=== PATIENT | female | born 1985 ===

== ENCOUNTER 2022-02-05 15:48 | Outpatient (REF) | payer MEDICAID, SELFPAY ==
--- NOTE | ~2022-02-05 | US_ITS ---
EXAMINATION: US PELVIS CLINICAL INFORMATION: Frequent and excessive menses, last menstrual period 12/25/2021. COMPARISON: 04/20/2016 TECHNIQUE: Ultrasound of the pelvis is performed using both transabdominal and transvaginal transducers along with Doppler. Transvaginal imaging is performed due to inadequate visualization transabdominally. FINDINGS: The uterus is heterogeneous and measures 7.6 x 4.3 x 5.1 cm. No discrete fibroids. Small amount of free fluid in the pelvis. Endometrial thickness is 0.8 cm. Bilateral ovaries were seen only on transvaginal ultrasound images, limiting evaluation. Left ovary is unremarkable and measures 2.6 x 1.7 x 1.9 cm, volume 4.4 mL. Right ovary measures 5.4 x 3.5 x 3.3 cm, volume 32.7 mL. Right ovarian complex cyst with septations measures 3.5 x 3.1 x 3.3 cm. US/US pelvic and transvaginal IMPRESSION: 1. Complex 3.5 cm right ovarian cysts with multiple septations. Small amount of free fluid in the pelvis. Recommend follow-up ultrasound in 6-8 weeks. 2. Endometrial thickness 0.8 cm. Endometrium appears heterogeneous.
== END 2022-02-05 15:49 | disposition home or self-care (01) ==
LOC: HO.US 15:48
PROVIDERS: Visit Provider Advanced Practice Midwife
DX: N92.0 Excessive and frequent menstruation with regular cycle (principal)
CPT/HCPCS: 76830; 76856

== ENCOUNTER 2022-03-29 11:21 | Outpatient (REF) | payer MEDICAID, SELFPAY ==
[2022-03-29 15:00] LABS: CT PCR NOT DETECTED (Not Detect.); NG PCR DETECTED (Not Detect.)
[2022-03-30 09:56] LABS: BV Int Neg Control Negative (Negative); BV Int Pos Control Positive (Positive)
== END 2022-03-29 11:22 | disposition home or self-care (01) ==
LOC: HO.LNP 11:21
PROVIDERS: Visit Provider Obstetrics & Gynecology
DX: B37.31 Acute candidiasis of vulva and vagina (principal); B97.7 Papillomavirus as the cause of diseases classified elsewhere
CPT/HCPCS: 0353U; 81025; 87480; 87510; 87660; 99212

== ENCOUNTER → 2022-03-30 12:46 | Outpatient (BNVA) | payer MEDICAID, SELFPAY | PROVIDERS: Visit Provider Advanced Practice Midwife | DX: A54.9 Gonococcal infection, unspecified (principal) | CPT/HCPCS: 96372; 99211; J0696 ==

== ENCOUNTER 2022-04-06 14:48 | Outpatient (REF) | payer MEDICAID, SELFPAY ==
--- NOTE | ~2022-04-06 | US_ITS ---
EXAMINATION: US PELVIS CLINICAL INFORMATION: Menorrhagia, follow-up ovarian cyst. LMP 03/12/2022 COMPARISON: 02/05/2022 TECHNIQUE: Ultrasound of the pelvis is performed using both transabdominal and transvaginal transducers along with Doppler. Transvaginal imaging is performed due to inadequate visualization transabdominally. FINDINGS: Uterus: The uterus is anteverted and measures 8.0 x 4.6 x 6.0 cm. The double wall endometrial thickness is 0.9 mm. The uterus is smooth in contour and has normal myometrial echogenicity. No visible fibroid. Adnexa: Right ovary is unremarkable. There is normal color flow to the right adnexa. There is no ovarian torsion. There is no pelvic ascites or fluid collection. Right ovary measures 2.9 x 2.2 x 2.0 cm. Left ovary is not visualized on today's study. US/US pelvic and transvaginal IMPRESSION: 1. Previously seen right ovarian cyst is not visualized on today's study. 2. Normal sonographic appearance of the uterus and right ovary.
== END 2022-04-06 14:49 | disposition home or self-care (01) ==
LOC: HO.US 14:48
PROVIDERS: Visit Provider Advanced Practice Midwife
DX: N83.201 Unspecified ovarian cyst, right side (principal)
CPT/HCPCS: 76830; 76856

== ENCOUNTER 2022-04-26 15:16 | Outpatient (REF) | payer MEDICAID, SELFPAY ==
[2022-04-27 08:41] LABS: HBsAGNum1 0.24 S/CO (0.00-0.99); HIV AB/AG Nonreactive (Nonreactive); HIV Num 1 0.07 S/CO (0.00-0.99); Hepatitis B Surface Antigen Negative (Negative); ~HepC Num1 0.07 S/CO (0.00-0.79); ~Hepatitis C Antibody Nonreactive (Nonreactive)
[2022-04-27 08:56] LABS: Syphilis Screen Nonreactive (Nonreactive)
[2022-04-27 10:59] LABS: CT PCR NOT DETECTED (Not Detect.); NG PCR NOT DETECTED (Not Detect.)
== END 2022-04-26 15:17 | disposition home or self-care (01) ==
LOC: HO.LNP 15:16
PROVIDERS: Visit Provider Obstetrics & Gynecology
DX: Z11.4 Encounter for screening for human immunodeficiency virus [HIV] (principal); A54.9 Gonococcal infection, unspecified
CPT/HCPCS: 0353U; 86780; 86803; 87340; 87389; 99212

== ENCOUNTER 2022-05-01 08:11 | Outpatient (REF) | payer MEDICAID, SELFPAY | END 2022-05-01 08:12 | disposition home or self-care (01) | LOC: HO.LNP 08:11 | PROVIDERS: Visit Provider Obstetrics & Gynecology | DX: A63.0 Anogenital (venereal) warts (principal); B97.7 Papillomavirus as the cause of diseases classified elsewhere | CPT/HCPCS: 57454; 88305 ==

== ENCOUNTER → 2022-05-22 07:53 | Outpatient (BNVA) | payer MEDICAID, SELFPAY | PROVIDERS: Visit Provider Obstetrics & Gynecology | DX: Z71.2 Person consulting for explanation of examination or test findings (principal) | CPT/HCPCS: 99212 ==

== ENCOUNTER 2022-07-23 07:59 | Outpatient (REF) | payer MEDICAID, SELFPAY ==
[2022-07-23 09:26] LABS: Hematocrit 35.8 % (37.0-47.0); Hemoglobin 11.8 g/dl (12.0-16.0); Mean Corpuscular Hemoglobin 30.3 pg (27.0-33.0); Mean Platelet Volume 9.9 fL (9.4-12.3); Platelet Count 230 X10*3/uL (160-400); Red Blood Count 3.89 X10*6/uL (4.20-5.50); Red Cell Distribution Width 15.2 % (11.0-16.0)
[2022-07-23 10:18] LABS: HCG Quantitative < 2 mIU/mL; TSH reflex Free T4 0.84 uIU/mL (0.32-4.0)
[2022-07-23 15:18] LABS: CT PCR NOT DETECTED (Not Detect.); NG PCR NOT DETECTED (Not Detect.)
[2022-07-24 10:43] LABS: BV Int Neg Control Negative (Negative); BV Int Pos Control Positive (Positive)
[2022-07-24 11:39] LABS: Prolactin 3.7 ng/mL
== END 2022-07-23 08:00 | disposition home or self-care (01) ==
LOC: HO.LAB 07:59
PROVIDERS: Visit Provider Obstetrics & Gynecology
DX: N93.9 Abnormal uterine and vaginal bleeding, unspecified (principal); A54.9 Gonococcal infection, unspecified
CPT/HCPCS: 0353U; 36415; 84146; 84443; 84702; 85027; 87480; 87510; 87660; 99212

== ENCOUNTER 2022-07-23 08:52 | Outpatient (REF) | payer MEDICAID, SELFPAY | END 2022-07-23 08:53 | disposition home or self-care (01) | LOC: HO.LNP 08:52 | PROVIDERS: Visit Provider Obstetrics & Gynecology | DX: Z13.89 Encounter for screening for other disorder (principal) ==

== ENCOUNTER 2022-09-04 11:18 | Outpatient (REF) | payer MEDICAID, SELFPAY | END 2022-09-04 11:19 | disposition home or self-care (01) | LOC: HO.LNP 11:18 | PROVIDERS: Visit Provider Obstetrics & Gynecology | DX: Z32.02 Encounter for pregnancy test, result negative (principal); N93.9 Abnormal uterine and vaginal bleeding, unspecified | CPT/HCPCS: 58100; 81025; 88305 ==

== ENCOUNTER 2022-11-19 12:18 | Outpatient (AMB) | payer MEDICAID, SELFPAY ==
[2022-11-19 12:27] VITALS: BP 112/64; BMI 28.6
--- NOTE | 2022-11-19 12:27 | A.OFFVIS_ITS ---
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 The following workup was done.: H&H= 11.8/25.8 TSH, hCG, GC and chlamydia were negative. Endometrial biopsy pathology showed no evidence of hyperplasia and/or malignancy. 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 Sexual orientation: Straight/Heterosexual Gender identity: Female Female Reproductive History Menstrual Age of Menarche: 11 control method: permanent sterilization Date of last pap smear: 05/01/16 (negative) Review of Systems Const All systems reviewed & are unremarkable except as noted in HPI and below Reports as per HPI and Reports no additional complaints GI Reports no additional complaints Reports no additional complaints Physical Exam Vital Signs: Last Vital Signs BP 112/64 11/19/22 12:27 BMI result Body Mass Index 28.6 Assessment & Plan Assessment & Plan (1) Abnormal uterine bleeding (AUB): Code(s): N93.9 - Abnormal uterine and vaginal bleeding, unspecified Plan: Discussed with the patient the results of the work up done and options of treatment including control pills , Mirena IUD, cyclic Provera, Lysteda or endometrial ablation. All pros, cons, risks and benefits if each option was discussed with the patient and the patient decided to go ahead with BCP so a more detailed discussion re: control pills including mechanism of action, benefits (regular menses, less dysmenorrhea, less risk of ovarian cancer, ...), risks ( DVT, PE, Strokes, [place], ? increased breast ca, others). Instructions were given to schedule a 3 months appointment for blood pressure check Medications: New desogestrel-ethinyl estradiol 0.15-0.03 mg (Apri) 1 tab PO DAILY 28 tabs 2RF 28 days Coding Level of Care Code Est Pt Level 3 (36681) Diagnoses Abnormal uterine bleeding (AUB) N93.9
== END 2022-11-19 12:42 | disposition home or self-care (01) ==
PROVIDERS: Visit Provider Obstetrics & Gynecology
DX: N93.9 Abnormal uterine and vaginal bleeding, unspecified (principal)
CPT/HCPCS: 99213

== ENCOUNTER → 2022-11-19 12:18 | Outpatient (BNVA) | payer MEDICAID, SELFPAY | PROVIDERS: Visit Provider Obstetrics & Gynecology | DX: N93.9 Abnormal uterine and vaginal bleeding, unspecified (principal) | CPT/HCPCS: 99212 ==

== ENCOUNTER 2022-12-27 15:58 | Outpatient (REF) | payer MEDICAID, SELFPAY ==
[2023-01-01 06:43] LABS: HPV mRNA E6/E7 rflx Not Detected (Not Detected)
== END 2022-12-27 15:59 | disposition home or self-care (01) ==
LOC: HO.LNP 15:58
PROVIDERS: Visit Provider Advanced Practice Midwife
DX: R87.810 Cervical high risk human papillomavirus (HPV) DNA test positive (principal)
CPT/HCPCS: 87624; 88142

== ENCOUNTER 2023-01-29 10:15 | Outpatient (REF) | payer MEDICAID, SELFPAY ==
[2023-01-29 11:19] LABS: MANUAL DIFF FLAG NO
[2023-01-29 11:25] LABS: Basophils Percent Auto 0.4 % (0-2); Eosinophils Absolute Auto 0.2 X10*3/uL (0.0-0.4); Eosinophils Percent Auto 2.9 % (0-4); Hematocrit 38.4 % (37.0-47.0); Hemoglobin 12.6 g/dl (12.0-16.0); Imm Gran Abs Auto 0.02 X10*3/uL (0.00-0.03); Imm Gran Pct Auto 0.3 % (0.0-0.4); Lymphocytes Absolute Auto 2.2 X10*3/uL (1.2-4.9); Lymphocytes Percent Auto 29.1 % (20-40); Mean Corpuscular HGB Conc 32.8 g/dl (31.0-35.0); Mean Corpuscular Hemoglobin 31.1 pg (27.0-33.0); Mean Corpuscular Volume 94.8 fL (80.0-98.0); Mean Platelet Volume 10.8 fL (9.4-12.3); Monocytes Absolute Auto 0.8 X10*3/uL (0.1-1.2); Monocytes Percent Auto 9.9 % (2-11); Neutrophils Absolute Auto 4.3 x10*3/uL (2.0-8.3); Neutrophils Percent Auto 57.4 % (45-73); Platelet Count 272 X10*3/uL (160-400); Red Blood Count 4.05 X10*6/uL (4.20-5.50); White Blood Count 7.6 X10*3/uL (4.8-10.8)
[2023-01-29 12:15] LABS: Cholesterol 132 mg/dL (<200); HDL Cholesterol 62 mg/dL (>40); LDL Cholesterol Calculated 57 mg/dL (<100); Triglycerides 67 mg/dL (<150)
[2023-01-29 12:16] LABS: Reflex LDLD? No
[2023-01-29 12:19] LABS: Anion Gap 8 (12-20); Blood Urea Nitrogen 11 mg/dL (9-16); Calcium 9.1 mg/dL (8.4-10.2); Carbon Dioxide 29 mmol/L (22-29); Chloride 107 mmol/L (96-108); Estimated Glomerular Filt Rate > 60; Glucose Random 82 mg/dL (60-115); Potassium 3.8 mmol/L (3.3-5.1); Sodium 140 mmol/L (135-145)
[2023-01-29 12:23] LABS: HBS Num1 5.58 mIU/mL (0-7.99); HBc Num1 0.07 S/CO (0.00-0.79); HBsAGNum1 0.32 S/CO (0.00-0.99); Hepatitis A Antibody IgM 0.38 Index (0-0.79); Hepatitis B Core Antibody Nonreactive (Nonreactive); Hepatitis B Surface Antigen Negative (Negative); ~HepC Num1 0.11 S/CO (0.00-0.79); ~Hepatitis A Antibody IgM Nonreactive (Nonreactive); ~Hepatitis B Surface Antibody NONREACTIVE (Nonreactive); ~Hepatitis C Antibody Nonreactive (Nonreactive)
[2023-01-29 12:24] LABS: Ferritin 6 ng/mL (10-122); Vitamin D 25-OH Total 14.2 ng/mL (>30)
[2023-01-30 17:38] LABS: Mumps Virus IgG Antibody <9.00 AU/mL; Rubella IgG Antibody 1.09 Index; Rubeola IgG (Measles) <13.50 AU/mL
[2023-01-31 22:59] LABS: TS Negative Control Passed; TS Panel A 1; TS Panel B 1; TS Positive Control Passed; TSpotTB Negative (Negative)
== END 2023-01-29 10:16 | disposition home or self-care (01) ==
LOC: HO.HHCL 10:15
PROVIDERS: Visit Provider Internal Medicine
DX: Z00.00 Encounter for general adult medical examination without abnormal findings (principal); Z11.1 Encounter for screening for respiratory tuberculosis; D50.0 Iron deficiency anemia secondary to blood loss (chronic); G43.009 Migraine without aura, not intractable, without status migrainosus
CPT/HCPCS: 36415; 80048; 80061; 82306; 82728; 85025; 86481; 86704; 86706; 86709; 86735; 86762; 86765; 86803; 87340

== ENCOUNTER 2023-05-27 07:50 | Outpatient (AMB) | payer MEDICAID, SELFPAY ==
[2023-05-27 07:57] VITALS: BP 108/68; BMI 28.2
--- NOTE | 2023-05-27 07:57 | A.OFFVIS_ITS ---
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 Sexual orientation: Straight/Heterosexual Gender identity: Female Female Reproductive History Menstrual Age of Menarche: 11 Duration of menses: 6-7 days Date of last menstrual period: 05/20/23 control method: permanent sterilization Total pregnancies: 3 Full term: 2 Number of Living Children: 2 Ab spontaneous: 1 Date of last pap smear: 12/28/22 Physical Exam Vital Signs: Last Vital Signs BP 108/68 05/27/23 07:57 BMI result Body Mass Index 28.2 Office Procedures Colposcopy Before the procedure was started discussed with the patient the procedure, alternatives & all the risks associated with the procedure (bleeding, infection, injury to vagina, bladder, vessels, possible need for transfusion with all its risks) then patient signed the consent Pap smear = Pap negative/HPV E6/E7 positive Urine test done in the office was negative Speculum inserted, acetic acid used Colposcopy done Transformation zone seen, acetowhite lesions identified at 9+11+1+3 o?clock, cervical biopsies taken from 9+11+1+ o?clock, ECC done afterwards. Vaginoscopy of the upper vagina showed no evidence of any aceto-white lesions Monsel solution used for hemostasis. The patient tolerated well . At the end the patient was instructed to call if temp>100.4, abdominal pain, n/v, bleeding; The patient was given the following instructions: nothing per vag darrel, no intercourse or bath tub use. All questions answered the patient verbalized understanding. Instructed the patient to make an appointment in 2 weeks for follow-up This note was generated with a voice recognition program. Some errors may have been overlooked during the review of this note. Sometimes these errors may affect the content or meaning of a given sentence. [id number] of cervix including upper vagina with biopsy and ECC Procedure code (CPT) selection complete Assessment & Plan Assessment & Plan (1) HPV in female: Comment: 2020 positive HPV E6/E7, with negative Pap 2021 positive HPV E6/E7, negative Pap, colpo/biopsy/ECC negative 12/31 positive HPV E6/E7, negative Pap Code(s): B97.7 - Papillomavirus as the cause of diseases classified elsewhere Plan: Discussed with the patient the result of her HPV E6/E7 positive, its significance, risk of progression, persistence, and regression. the false positive/negative rate of a Pap smear as a screening test in detecting cervical cancer and the indication for a diagnostic test -colposcopy, biopsy, endocervical curettage. Colposcopy/biopsy/ECC done, see procedure note. The patient verbalized understanding and agreed with the plan, all questions answered. Orders: Orders AMB Colposcopy Today B97.7 - Papillomavirus as the cause of diseases classified elsewhere Coding Level of Care Code Procedure Only Diagnoses HPV in female B97.7 CPT Codes Colposcopy - CPT: 34700-Umzmojymf of cervix including upper vagina with biopsy and ECC ([id number])
== END 2023-05-27 08:37 | disposition home or self-care (01) ==
PROVIDERS: PCP Internal Medicine; Visit Provider Obstetrics & Gynecology
DX: R87.810 Cervical high risk human papillomavirus (HPV) DNA test positive (principal); Z32.02 Encounter for pregnancy test, result negative
CPT/HCPCS: 57454

== ENCOUNTER 2023-05-27 07:50 | Outpatient (REF) | payer MEDICAID, SELFPAY | END 2023-05-27 07:51 | disposition home or self-care (01) | LOC: HO.LNP 07:50 | PROVIDERS: Visit Provider Obstetrics & Gynecology | DX: Z01.419 Encounter for gynecological examination (general) (routine) without abnormal findings (principal); N93.9 Abnormal uterine and vaginal bleeding, unspecified; B97.7 Papillomavirus as the cause of diseases classified elsewhere | CPT/HCPCS: 57454; 81025; 88305; 88342; 88360 ==

== ENCOUNTER 2023-07-04 07:29 | Outpatient (AMB) | payer MEDICAID, SELFPAY ==
[2023-07-04 07:32] VITALS: BP 110/72; BMI 28.1
--- NOTE | 2023-07-04 07:32 | MHC.OFFVIS ---
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 The patient is doing well with no complaints. The pathology showed the following: A. Endocervix, curettage: Mildly inflamed endocervical mucosa; otherwise within normal limits. B. Cervix, 1 o'clock, biopsy: Inflamed cervical transformation zone mucosa with reactive changes. C. Cervix, 3 o'clock, biopsy: Inflamed cervical transformation zone mucosa with reactive changes. D. Cervix, 9 o'clock, biopsy: Low grade squamous intraepithelial lesion (ANA 1); endocervical epithelium within normal limits. E. Cervix, 11 o'clock, biopsy: Scant superficial fragments of endocervical and squamous epithelium within normal limits Co testing 12/30 was negative/HPV E6/E7 positive Co testing done in 12/31 was negative [facility] Medical History (Updated 07/04/23 @ 07:46 by Deng De Luna MD) HPV in female Surgical History Hx of tubal ligation Family History Maternal Grandmother Diabetes Breast cancer Mother HTN (hypertension) Social History Household Members: Children Housing: Apartment Alcohol intake: current Alcohol intake frequency: holidays/special occasions only Patient Tobacco Use Status: Former Tobacco user Current occupational status: employed 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 Sexual orientation: Straight/Heterosexual Gender identity: Female Female Reproductive History Menstrual Age of Menarche: 11 Date of last menstrual period: 07/01/23 Review of Systems Const All systems reviewed & are unremarkable except as noted in HPI and below Reports as per HPI and Reports no additional complaints GI Reports no additional complaints Reports no additional complaints Physical Exam Vital Signs: Last Vital Signs BP 110/72 07/04/23 07:32 BMI result Body Mass Index 28.1 Assessment & Plan Assessment & Plan (1) Dysplasia of cervix, low grade (ANA 1): Code(s): N87.0 - Mild cervical dysplasia Category: Medical Plan: Discussed with the patient the pathology results of the colposcopy biopsies & endocervical curettage ( mild dysplasia-ANA 1). Discussed with the patient the sensitivity specificity, positive and negative predictive value in detecting cervical cancer in addition discussed the regression, persistence and progression rates. Recommended co-testing in 12 months, if cytology and or HPV are abnormal will proceed was colposcopy biopsy and endocervical curettage, if lesions gets worse or stays persistent for 2 years will proceed with loop electric excision procedure. Instructions given to the patient to schedule a co test appointment in 1 year. All questions answered the patient verbalized understanding. Coding Level of Care Code Est Pt Level 3 (47404) Diagnoses Dysplasia of cervix, low grade (ANA 1) N87.0
== END 2023-07-04 07:45 | disposition home or self-care (01) ==
LOC: HO.HWS 07:29
PROVIDERS: PCP Advanced Practice Midwife; Referring Provider Advanced Practice Midwife; Visit Provider Obstetrics & Gynecology
DX: N87.0 Mild cervical dysplasia (principal)
CPT/HCPCS: 99213

== ENCOUNTER → 2023-07-04 07:29 | Outpatient (BNVA) | payer MEDICAID, SELFPAY | PROVIDERS: PCP Advanced Practice Midwife; Visit Provider Obstetrics & Gynecology | DX: N87.0 Mild cervical dysplasia (principal) | CPT/HCPCS: 99212 ==

== ENCOUNTER → 2023-07-30 11:26 | Outpatient (BNVA) | payer MEDICAID, SELFPAY | PROVIDERS: PCP Advanced Practice Midwife; Visit Provider Obstetrics & Gynecology ==

== ENCOUNTER 2023-10-14 07:23 | Outpatient (AMB) | payer MEDICAID, SELFPAY ==
--- NOTE | 2023-10-14 07:24 | A.OFFVIS_ITS ---
Vital Signs 10/14/23 07:27 Height 5 ft 6 in Weight 174 lb 2.643 oz BMI 28.1 BP 120/74 Intake Visit Reasons: control follow up Rug Renovator Required: No Information Interpreted: non-clinical & clinical Accompanied by: Self / Same As Patient Allergies No Known Allergies [No Known Allergies*] Allergy (Verified 07/30/23 11:27) Is last menstrual period known: No (pills) HPI Comments Details: Presenting for control complaining of migraine headaches. 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 Sexual orientation: Straight/Heterosexual Gender identity: Female Female Reproductive History Menstrual Age of Menarche: 11 Review of Systems Const All systems reviewed & are unremarkable except as noted in HPI and below Reports as per HPI and Reports no additional complaints GI Reports no additional complaints Reports no additional complaints Physical Exam Vital Signs: Last Vital Signs BP 120/74 10/14/23 07:27 BMI result Body Mass Index 28.1 Assessment & Plan Assessment & Plan (1) Abnormal uterine bleeding (AUB): Code(s): N93.9 - Abnormal uterine and vaginal bleeding, unspecified Category: Medical Plan: Recommended discontinuation of control pills zelda. Instructions given the patient to schedule EMB within 2 weeks to rule out endometrial pathology Discussed with the patient the results of the work up done and options of treatment including but not limited to cyclic Progesterone, Mirena IUD, endometrial ablation and hysterectomy. All pros, cons, risks and benefits of each option were discussed with the patient and the patient decided to go ahead with cyclic Provera, so a more detailed discussion re: Progesterone treatment including mechanism of action, benefits (regular menses, endometrial protection form unopposed estrogen and reduction in the risk of endometrial hyperplasia and/or cancer ...), risks (Thrombosis, mood changes, weight gain, breast soreness, ? increased breast ca, others). Instructions were given to use a back- up method for contraception since this is not a method control, take the medication 1 tablet daily starting day 15-24 and to schedule a 3 months follow- up appointment; patient verbalized understanding and agreed with the plan. Medications: New medroxyprogesterone (Provera) start Provera 1 tablet daily from day 15-24 cyclically every months, day 1 being 1st day of menses 10 mg PO DAILY 10 days 30 tabs 0RF Discontinued L norgest/e.estradiol-e.estrad 0.15 mg-30 mcg ()/10 mcg (7) () Discontinued Reason: Doctor's Order 1 tab PO DAILY 84 days 84 ea 0RF Coding Level of Care Code Est Pt Level 3 (31441) Diagnoses Abnormal uterine bleeding (AUB) N93.9
[2023-10-14 07:27] VITALS: BP 120/74; BMI 28.1
== END 2023-10-14 08:16 | disposition home or self-care (01) ==
PROVIDERS: PCP Advanced Practice Midwife; Referring Provider Advanced Practice Midwife; Visit Provider Obstetrics & Gynecology
DX: N93.9 Abnormal uterine and vaginal bleeding, unspecified (principal)
CPT/HCPCS: 99213

== ENCOUNTER → 2023-10-14 07:23 | Outpatient (BNVA) | payer MEDICAID, SELFPAY | PROVIDERS: PCP Advanced Practice Midwife; Visit Provider Obstetrics & Gynecology | DX: N93.9 Abnormal uterine and vaginal bleeding, unspecified (principal); G43.909 Migraine, unspecified, not intractable, without status migrainosus; Z30.41 Encounter for surveillance of contraceptive pills | CPT/HCPCS: 99212 ==

== ENCOUNTER 2023-10-24 08:39 | Outpatient (AMB) | payer MEDICAID, SELFPAY ==
[2023-10-24 09:03] VITALS: BMI 28.1
--- NOTE | 2023-10-24 09:03 | A.OFFVIS_ITS ---
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 Required: No Information Interpreted: non-clinical & clinical Government Service Executive: Government Service Executive Present (Josette ELLINGTON) Accompanied by: Self / Same As Patient Allergies No Known Allergies [No Known Allergies*] Allergy (Verified 10/24/23 09:03) HPI Comments Details: Presenting for EMB [facility] Medical History Migraine HPV in female Surgical History Hx of tubal ligation Family History Maternal Grandmother Diabetes Breast cancer Mother HTN (hypertension) Social History Household Members: Children Housing: Apartment Alcohol intake: current Alcohol intake frequency: holidays/special occasions only Patient Tobacco Use Status: Former Tobacco user Current occupational status: employed 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 Sexual orientation: Straight/Heterosexual Gender identity: Female Female Reproductive History Menstrual Age of Menarche: 11 Review of Systems Const All systems reviewed & are unremarkable except as noted in HPI and below Reports as per HPI and Reports no additional complaints GI Reports no additional complaints Reports no additional complaints Physical Exam Vital Signs: BMI result Body Mass Index 28.1 Office Procedures Endometrial Biopsy Details: The patient was counseled regarding the indication and benefits of endometrial sampling to rule out endometrial pathology including not limited to endometrial hyperplasia or endometrial cancer and others; The alternatives (Either do nothing vs. hysteroscopy D&C) & the risks were discussed with the patient including but not limited: pain, uterine perforation, bleeding, infection, possible injury to bladder, bowel, ureter, possible need for blood transfusion with all its possible risks. The patient verbalized understanding all questions answered and signed consent. Urine test done in the office was negative The patient was placed into the dorsal lithotomy position; a speculum was inserted in the vagina. Using aseptic technique for the procedure, the cervix was cleansed with Betadine. The anterior lip of the cervix was grasped with a single tooth tenaculum. The uterus was sounded to 7 cm with a 4 mm Pipelle was used. Tissues samples were obtained and placed in formalin, in a patient labeled container and sent to the pathology department. At the end of the procedure, there was minimal bleeding noted The patient tolerated the procedure well and was discharged in good condition with the following instructions: Nothing in the vagina until the bleeding stops. No sex until the bleeding stops, to call if any of the following occurs: fever (>100.4), flu-like symptoms, abdominal pain, heavy bleeding, four smelling vaginal discharge. The patient was instructed to schedule a Follow up appointment in 2 weeks to discuss pathology results of the biopsy and treatment options. This note was generated with a voice recognition program. Some errors may have been overlooked during the review of this note. Sometimes these errors may affect the content or meaning of a given sentence. [id number]-[id number] Biopsy Assessment & Plan Assessment & Plan (1) Abnormal uterine bleeding (AUB): Code(s): N93.9 - Abnormal uterine and vaginal bleeding, unspecified Category: Medical Plan: EMB done, see procedure note Orders: Orders AMB HCG Urine Test Today Z32.02 - Encounter for test, result negative Surgical Today N93.9 - Abnormal uterine and vaginal bleeding, unspecified AMB Endometrial Biopsy Today N93.9 - Abnormal uterine and vaginal bleeding, unspecified Medications: Refilled medroxyprogesterone (Provera) start Provera 1 tablet daily from day 15-24 cyclically every months, day 1 being 1st day of menses 10 mg PO DAILY 10 days 30 tabs 0RF Coding Level of Care Code Procedure Only Diagnoses Abnormal uterine bleeding (AUB) N93.9 CPT Codes Endometrial Biopsy - CPT: 29953-Ofzfwoyeygd Biopsy ([id number])
== END 2023-10-24 09:48 | disposition home or self-care (01) ==
PROVIDERS: PCP Advanced Practice Midwife; Visit Provider Obstetrics & Gynecology
DX: Z32.02 Encounter for pregnancy test, result negative (principal); N93.9 Abnormal uterine and vaginal bleeding, unspecified
CPT/HCPCS: 58100

== ENCOUNTER 2023-10-24 08:39 | Outpatient (REF) | payer MEDICAID, SELFPAY | END 2023-10-24 08:40 | disposition home or self-care (01) | LOC: HO.LNP 08:39 | PROVIDERS: PCP Advanced Practice Midwife; Visit Provider Obstetrics & Gynecology | DX: N93.9 Abnormal uterine and vaginal bleeding, unspecified (principal) | CPT/HCPCS: 58100; 81025; 88305 ==

== ENCOUNTER 2023-12-18 07:44 | Outpatient (AMB) | payer MEDICAID, SELFPAY ==
[2023-12-18 07:59] VITALS: BMI 28.1
--- NOTE | 2023-12-18 07:59 | A.OFFVIS_ITS ---
Vital Signs 12/18/23 07:59 Height 5 ft 6 in Weight 174 lb 2.643 oz BMI 28.1 Intake Visit Reasons: Emb Results Allergies No Known Allergies [No Known Allergies*] Allergy (Verified 10/24/23 09:03) HPI Comments Details: The patient is presenting after endometrial biopsy. The patient has no complaints, no vaginal bleeding, no feverishness chills or abdominal pain. The endometrial biopsy pathology report showed the following: Endometrium, biopsy: Fragments of inactive endometrium with stromal breakdown; negative for atypia, hyperplasia or malignancy. The patient discontinued control pill and started on Provera 10 mg p.o. q.d. 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 Sexual orientation: Straight/Heterosexual Gender identity: Female Female Reproductive History Menstrual Age of Menarche: 11 Review of Systems Const All systems reviewed & are unremarkable except as noted in HPI and below Reports as per HPI and Reports no additional complaints GI Reports no additional complaints Reports no additional complaints Physical Exam Vital Signs: BMI result Body Mass Index 28.1 Assessment & Plan Assessment & Plan (1) Abnormal uterine bleeding (AUB): Code(s): N93.9 - Abnormal uterine and vaginal bleeding, unspecified Category: Medical Plan: Discussed with the patient the results the EMB pathology, its sensitivity, specificity, false-positive and false-negative rate. Instructions given the patient to call in case of recurrence abnormal uterine bleeding. All questions answered, the patient verbalized understanding Coding Level of Care Code Est Pt Level 3 (68597) Diagnoses Abnormal uterine bleeding (AUB) N93.9
== END 2023-12-18 08:10 | disposition home or self-care (01) ==
PROVIDERS: PCP Advanced Practice Midwife; Visit Provider Obstetrics & Gynecology
DX: N93.9 Abnormal uterine and vaginal bleeding, unspecified (principal)
CPT/HCPCS: 99213

== ENCOUNTER → 2023-12-18 07:44 | Outpatient (BNVA) | payer MEDICAID, SELFPAY | PROVIDERS: PCP Advanced Practice Midwife; Visit Provider Obstetrics & Gynecology | DX: N93.9 Abnormal uterine and vaginal bleeding, unspecified (principal); Z71.2 Person consulting for explanation of examination or test findings | CPT/HCPCS: 99212 ==

== ENCOUNTER 2023-12-26 18:32 | Outpatient (REF) | payer MEDICAID, SELFPAY ==
[2023-12-27 08:57] LABS: Bacterial Vaginosis PCR POSITIVE (Negative); Candida Group PCR NOT DETECTED (Not Detect); Candida glab krusei PCR NOT DETECTED (Not Detect); Trichomonas vaginalis PCR NOT DETECTED (Not Detect)
== END 2023-12-26 18:33 | disposition home or self-care (01) ==
LOC: HO.HHCLNP 18:32
PROVIDERS: Visit Provider Advanced Practice Midwife
DX: N89.8 Other specified noninflammatory disorders of vagina (principal)
CPT/HCPCS: 0352U

== ENCOUNTER 2024-01-30 07:27 | Outpatient (AMB) | payer MEDICAID, SELFPAY ==
[2024-01-30 07:33] VITALS: BP 116/70; BMI 28.1
--- NOTE | 2024-01-30 07:33 | A.OFFVIS_ITS ---
Vital Signs 01/30/24 07:33 Height 5 ft 6 in Weight 174 lb 2.643 oz BMI 28.1 BP 116/70 Intake Visit Reasons: Medication follow up Patient Service Rep Required: No Information Interpreted: non-clinical & clinical Accompanied by: Self / Same As Patient Allergies No Known Allergies [No Known Allergies*] Allergy (Verified 10/24/23 09:03) HPI Comments Details: Presenting for three-month follow-up after starting Provera cyclicly day 15-24 PFSH Medical History Migraine HPV in female Surgical History Hx of tubal ligation Family History Maternal Grandmother Diabetes Breast cancer Mother HTN (hypertension) Social History Household Members: Children Housing: Apartment Alcohol intake: current Alcohol intake frequency: holidays/special occasions only Patient Tobacco Use Status: Former Tobacco user Current occupational status: employed 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 Sexual orientation: Straight/Heterosexual Gender identity: Female Female Reproductive History Menstrual Age of Menarche: 11 Review of Systems Const All systems reviewed & are unremarkable except as noted in HPI and below Reports as per HPI and Reports no additional complaints GI Reports no additional complaints Reports no additional complaints Physical Exam Vital Signs: Last Vital Signs BP 116/70 01/30/24 07:33 BMI result Body Mass Index 28.1 Assessment & Plan Assessment & Plan (1) Abnormal uterine bleeding (AUB): Code(s): N93.9 - Abnormal uterine and vaginal bleeding, unspecified Category: Medical Plan: Provera refilled 10 mg p.o. q.d. day 15-24. Instructions given to patient to call in case of irregular menstrual cycles. All questions answered, the patient verbalized understanding Medications: Refilled medroxyprogesterone (Provera) start Provera 1 tablet daily from day 15-24 cyclically every months, day 1 being 1st day of menses 10 mg PO DAILY 10 days 30 tabs 3RF Coding Level of Care Code Est Pt Level 3 (63137) Diagnoses Abnormal uterine bleeding (AUB) N93.9
== END 2024-01-30 07:41 | disposition home or self-care (01) ==
LOC: HO.HWS 07:27
PROVIDERS: PCP Advanced Practice Midwife; Visit Provider Obstetrics & Gynecology
DX: N93.9 Abnormal uterine and vaginal bleeding, unspecified (principal)
CPT/HCPCS: 99213

== ENCOUNTER → 2024-01-30 07:27 | Outpatient (BNVA) | payer MEDICAID, SELFPAY | PROVIDERS: PCP Advanced Practice Midwife; Visit Provider Obstetrics & Gynecology | DX: N93.9 Abnormal uterine and vaginal bleeding, unspecified (principal) | CPT/HCPCS: 99212 ==

== ENCOUNTER 2024-05-19 17:21 | Outpatient (REF) | payer MEDICAID, SELFPAY ==
[2024-05-19 17:31] LABS: Appearance Urine Clear; Color Urine Yellow; Glucose Urine UA Negative (Negative); Leukocyte Esterase Urine Small (1+) (Negative); Nitrite Urine Negative (Negative); PH 8.5 (5.0-9.0); UMIC TRIGGER UACC YES; Urine Blood Trace (Negative); Urine Ketones Negative (Negative); Urine Protein Trace mg/dL (Neg-Trace)
[2024-05-19 17:43] LABS: Bacteria Urine None Seen (None Seen); Hyaline Casts Urine 0-2 /LPF (0-2); RBC Urine 0-2 /HPF (0-2); Squamous Epithelial Cell Urine 0-2 /HPF (0-2); UACC Culture Trigger YES; WBC Urine 0-5 /HPF (0-5)
--- OUTSIDE RECORDS SUMMARY | 2024-05-19 19:33 | XMS_ITS | Encounter Summary ---
Author Organization [facility] Address [address] [place] [address] [address] [place] [address] Care Team Providers Care Training Representative Name Role Phone Pearl Valentine MD Primary Care Provider + Encounter Details Date Type Department Care Team (Latest Contact Info) Description 07/15/2020 Abstract [facility] CONVERSIONS Dental, Provider, DDS Social History Tobacco Use Types Packs/Day Years Used Date Smoking Tobacco: Never Assessed Comments Unknown Sex and Gender Information Value Date Recorded Sex Assigned at Female 01/08/2022 10:15 AM EDT Legal Sex Female 10:15 AM EDT Gender Identity Female 01/08/2022 10:15 AM EDT Sexual Orientation Straight 01/08/2022 10 :15 AM EDT documented as of this encounter Plan of Treatment Upcoming Encounters Date Type Department Care Team (Late st Contact Info) Description 06/04/2024 2:30 PM EDT Office Visit [facility] OPTOMETRY [address] [place] [address] Ginny Kee, OD [address] [place] [address] documented as of this encounter Visit Diagnoses Not on filedocumented in this encounter Care Teams Training Representative Relationship Specialty Start Date End Date Pearl Valentine MD [address] [place] [address] PCP - General Family Medicine 03/27/18 documented as of this encounter
--- OUTSIDE RECORDS SUMMARY | 2024-05-19 19:33 | XMS_ITS | Encounter Summary ---
Author Organization [employer] Address [address] [facility] 7t [place] [address] Care Team Providers Care Chopping Machine Operator Name Role Phone Pearl Valentine MD Primary Care Provider + Reason for Visit * Reason Onset Date Comments No Show 05/19/2024 Encounter Details Date Type Department Care Team ([facility] st Contact Info) Description 05/19/2024 Telephone [facility]ICINE [address] [place], [place] [phone] Sofya Fierro, [facility] [address] [place], [place] [phone] No Show Social History Tobacco Use Types Packs/Day Years Used Date Smoking Tobacco: Some Days Cigarettes Smokeless Tobacco: Never Alcohol Use Standard Drinks/Week Comments Yes 0 (1 standard drink = 0.6 oz pur e alcohol) Housing Stability Answer Date Recorded What is your housing situation today? I have enrique baer 01/02/[address] you li ve. Do you have problems with any of the following? None of the above 01/02/2023 Food Insecurity Answer Date Recorded Within the past 12 months, y ou worried that your food would run out before you got money to buy more: Never True 01/02/2023 Within the past 12 months,th e food you bought just didn't last and you didn't have enough money to get more: Never True Transportation Answer Date Recorded In the past 12 months, has l ack of transportation kept you from medical appts, meetings, work or from getting things needed for daily living? No 01/02/2023 Utilities Answer Date Recorded In the past 12 months, has t he electric, gas, oil or water company threatened to shut off services in your home? No 01/02/2023 Depression Answer Date Recorded Patient Health Questionnaire-2 Score 0 01/29/2023 Comments No Sex and Gender Information Value Date Recorded Sex Assigned at Female 01/08/2022 10:15 AM EDT Legal Sex Female 10:15 AM EDT Gender Identity Female 01/08/2022 10:15 AM EDT Sexual Orientation Straight 01/08/2022 10 :15 AM EDT documented as of this encounter Miscellaneous Notes * Telephone Encounter - Michaela Alexis RN - 05/19/2024 2:18 PM EDT Pt seen in [facility] for same Sx earlier today. Pt to follow up PRN * Telephone Encounter - Ana Cristina Adam - 05/19/2024 2:10 PM EDT Patient no showed to sick on site on 05/19/2024. documented in this encounter Plan of Treatment Upcoming Encounters Date Type Department Care Team (Late st Contact Info) Description 06/04/2024 2:30 PM EDT Office Visit [facility] OPTOMETRY [address] [place] [address] Ginny Kee, OD [address] [place] [address] documented as of this encounter Visit Diagnoses Not on filedocumented in this encounter Care Teams Chopping Machine Operator Relationship Specialty Start Date End Date Pearl Valentine MD [address] [place] [address] PCP - General Family Medicine 03/27/18 documented as of this encounter
--- OUTSIDE RECORDS SUMMARY | 2024-05-19 19:33 | XMS_ITS | Encounter Summary ---
Author Organization [employer] [facility] Address [address] [place] [address] 7 [place] [address] Care Team Providers Care Optometrist Name Role Phone Pearl Valentine MD Primary Care Provider + Reason for Referral * Imaging (Routine) - Closed Specialty Diagnoses / Procedures Referred By Contac t Referred To Contact Diagnoses Ovarian cyst, right Procedures Us Pelvis complete Sofya Fierro CNM [address] [place] [address] Phone: tel: fax: [address] [phone] Phone: tel: fax: Referral ID Status Reason Start Date Expiration Date Visits Re quested Visits Authorized [id number] Closed 03/22/2022 09/18/2022 1 1 * Imaging (Routine) - Closed Specialty Diagnoses / Procedures Referred By Contac t Referred To Contact Diagnoses Ovarian cyst, right Procedures US Pelvis Transvaginal Sofya Fierro CNM [address] [place] [address] Phone: tel: fax: [address] [phone] Phone: tel: fax: Referral ID Status Reason Start Date Expiration Date Visits Re quested Visits Authorized [id number] Closed 03/22/2022 09/18/2022 1 1 Encounter Details Date Type Department Care Team (Late Contact Info) Description 03/22/2022 Orders Only [facility] MEDICINE [address] [place] [address] Sofya Fierro CNM [address] [place] [address] Ovarian cyst, right (Primary Dx) Social History Tobacco Use Types Packs/Day Years Used Date Smoking Tobacco: Never Smokeless Tobacco: Never Comments Unknown Sex and Gender Information Value Date Recorded Sex Assigned at Female 01/08/2022 10:15 AM EDT Legal Sex Female 10:15 AM EDT Gender Identity Female 01/08/2022 10:15 AM EDT Sexual Orientation Straight 01/08/2022 10 :15 AM EDT COVID-19 Exposure Response Date Recorded In the last 10 days, have yo u been in contact with someone who was confirmed or suspected to have Coronavirus/COVID-19? Yes 03/19/2022 8:46 AM EST documented as of this encounter Plan of Treatment Upcoming Encounters Date Type Department Care Team (Late Contact Info) Description 06/04/2024 2:30 PM EDT Office Visit [facility] OPTOMETRY [address] [place] [address] Targustavo, Ginny, OD [address] [place] [address] Scheduled Orders Name Type Priority Associated Diagnoses Orde r Schedule US Pelvis Transvaginal Imaging Routine Ovarian cyst, right Expected: 03/22/2022, Expires: 03/22/2023 Us Pelvis complete Imaging Routine Ovarian cyst, right Expected: 03/22/2022, Expires: 03/22/2023 documented as of this encounter Visit Diagnoses Diagnosis Ovarian cyst, right- Primary Other and unspecified ovarian cyst documented in this encounter Care Teams Optometrist Relationship Specialty Start Date End Date Pearl Valentine MD [address] [place] [id number] PCP - General Family Medicine 03/27/18 documented as of this encounter
--- OUTSIDE RECORDS SUMMARY | 2024-05-19 19:33 | XMS_ITS | Encounter Summary ---
Author Organization [employer] Address [address] [facility] 7t [place] [address] Care Team Providers Care Billboard Poster Helper Name Role Phone Pearl Valentine MD Primary Care Provider + Reason for Visit * Reason Onset Date Comments Nurse Triage 05/18/2024 Encounter Details Date Type Department Care Team ([facility] st Contact Info) Description 05/18/2024 Telephone [facility] MEDICINE [address] [place], [place] [phone] Pearl Valentine MD [address] [place], [place] [phone] Nurse Triage Social History Tobacco Use Types Packs/Day Years [...] t he electric, gas, oil or water [employer] threatened to shut off services in your [...] encounter Miscellaneous Notes * Telephone Encounter - Elena Love RN - 05/18/2024 4:14 PM EDT Noted, to f/up at appt. Tomorrow 05/19/24 * Telephone Encounter - Carlita Carl LPN - 05/18/2024 3:56 PM EDT Triage call returned with BLS # [id number] Juancarlos Patient reports onset of symptoms on Saturday with vaginal burning and irritation with slight itch.NO discharge on underwear at time of call. No pain with urination and no blood in urine. Patient reports that she has had infection before' and does not want it to get worse. Patient very upset thatshe is unable to get in to see her PCP when she calls with concerns. No appts available with PCP attime of call. Disposition reviewed and patient in agreement with plan. ASK/Rakel LOPEZ tomorrow at 115pm. Patient wants PCP to be aware of no availability and her frustration with seeing other providers. Team tasked to follow. Protocol Used: Vaginal Symptoms (Adult) Protocol-Based Disposition: See in Office or Video Visit within 3 Days Positive Triage Question: * Patient wants to be seen * All higher-acuity triage questions were negative Care Advice Discussed: * Reasons To Call Back - Vaginal discharge becomes yellow or green - Vaginal discharge becomes foul smelling or itchy - Fever or abdomen pain occur - You become worse * Telephone Encounter - Henok Dunaway - 05/18/2024 3:50 PM EDT Symptom: Vaginal Symptoms - Not Bleeding Outcome: Schedule an urgent appointment (within 1 hour) or talk to a nurse or provider soon Reason: Any pelvic pain The caller accepted this outcome. documented in this encounter Plan of Treatment Upcoming Encounters Date Type Department Care Team (Late st Contact Info) Description 06/04/2024 2:30 PM EDT Office Visit [facility] OPTOMETRY [address] [place] [address] Ginny Kee, OD [address] [place] [address] documented as of this encounter Visit Diagnoses Not on filedocumented in this encounter Care Teams Billboard Poster Helper Relationship Specialty Start Date End Date Pearl Valentine MD [address] [place] [phone] PCP - General Family Medicine 03/27/18 documented as of this encounter
--- OUTSIDE RECORDS SUMMARY | 2024-05-19 19:33 | XMS_ITS | Encounter Summary ---
Author Organization [employer] Address [address] [place] [address] [address] [place] [address] Care Team Providers Care Foundation Drill Operator Helper Name Role Phone Pearl Valentine MD Primary Care Provider + Encounter Details Date Type Department Care Team (Late st Contact Info) Description 02/12/2022 Orders Only [facility] [address] [place], [place] [phone] Sofya Fierro, JOHN [address] [place] [address] Cyst of right ovary Social History Tobacco Use Types Packs/Day Years [...] Description 06/04/2024 2:30 PM EDT Office Visit [facility] OPTOMETRY [address] [place], [place] [phone] Ginny Kee, OD [address] [place], [place] [phone] Scheduled Orders Name Type Priority Associated Diagnoses Orde r Schedule Us Pelvis complete Imaging Routine Cyst of right ovary Expected: 03/26/2022, Expires: 02/12/2023 documented as of this encounter Visit Diagnoses Diagnosis Cyst of right ovary Other and unspecified ovarian cyst documented in this encounter Care Teams Foundation Drill Operator Helper Relationship Specialty Start Date End Date Pearl Valentine MD [address] [place] [phone] PCP - General Family Medicine 03/27/18 documented as of this encounter
--- OUTSIDE RECORDS SUMMARY | 2024-05-19 19:33 | XMS_ITS | Clinical Summary ---
Author Organization [employer] Address [address] [facility] [address] [place] [address] Care Team Providers Care Network Technology Instructor Name Role Phone Pearl Valentine MD Primary Care Provider + Allergies No known active allergies Medications omeprazole (PriLOSEC) [address] capsule TAKE 1 CAPSULE BY MOUTH BEFORE BREAKFAST DO NOT CRUSH OR CHEW 90 capsule 1 07/04/19 24 Active Additional Information Patient not taking.Reported on 03/26/2024 Multiple Vitamin (multivitamin) tablet Take 1 tablet by mouth Once per day. 90 tablet 08/01/19 24 Active Additional Information Patient not taking.Reported on 03/26/2024 medroxyPROGESTE Fer (Provera) 10 MG tablet Take 10 mg by mouth Once per day. 1/d x 10d every month on the first day of her menstruation 11/20/19 24 Active Blood Pressure Monitoring (Blood Pressure Cuff) misc Use daily as prescribed 1 each 02/04/20 24 Active fluticasone (Flonase) 50 MCG/ACT nasal spray Administer 1 spray into each nostril 2 times daily for 7 days. Shake gently. Before first use, prime pump. After use, clean tip and replace cap. 48 mL 02/04/20 24 Active Acetaminophen 500 MG capsuleIndicati ons:Other headache syndrome Take one to two tablets as needed for fever or pain every 6 hours 120 capsule 02/04/20 24 Active Additional Information Patient not taking.Reported on 03/26/2024 hydrOXYzine HCl (Atarax) 25 MG tabletIndicatio ns:Primary insomnia TAKE 1 TABLET BY MOUTH AT BEDTIME 90 tablet 03/12/19 25 Active clotrimazole (Lotrimin) 1 % vaginal creamIndication s:Vulvovaginal Candidiasis Insert one applicator per vagina at bedtime for 7 nights 45 g 1 05/20/19 25 Active clotrimazole (Lotrimin) 1 % vaginal creamIndication s:Vulvovaginal Candidiasis Insert one applicator per vagina at bedtime for 7 nights 45 g 1 05/20/19 25 025 Discontin ued(Alter gary therapy) Active Problems Problem Noted Date Diagnosed Date Vagina, candidiasis 05/19/2024 Assessment & Plan (05/19/2024 9:21 AM EDT): -Wet prep with ARY significant for hyphae and budding yeast. -Candidiasis prevention discussed. Other headache syndrome 02/04/2024 Assessment & Plan (02/04/2024 1:13 PM EST): Unclear if related to bleeding versus URI. Take Acetaminophen or Tylenol x 1 week, re consult PRN. Check BP at home and call back if BP is above 140/85. Refer to Ophthalmology. Acute pain of right shoulder 08/01/2023 Assessment & Plan (08/01/2023 12:37 PM EDT): She has tendinosis Refer to PT Callus of heel 08/01/2023 Assessment & Plan (08/01/2023 12:38 PM EDT): Advised to use OTC salicylic acid solution Use callus cushion w/ shoes Will fu PRN ANA I (cervical intraepithelial neoplasia I) Assessment & Plan (08/01/2023 3:46 PM EDT): S/p LEEP biopsy on 05/29/23, neg HPV Fu w/ ENROLLMENT MANAGEMENT VICE PRESIDENT Next colposcopy on 2024 Menorrhagia with regular cycle 01/29/2023 Assessment & Plan (08/01/2023 12:37 PM EDT): Persistent. Advised to start combination OCP Fu w/ ENROLLMENT MANAGEMENT VICE PRESIDENT Start MVI w/ iron x 3 m Assessment & Plan (04/02/2023 4:07 PM EST): Hasn't started OCPs, advised to call ENROLLMENT MANAGEMENT VICE PRESIDENT to fu, I believe she can start them now, her cycle this and next month can Change. Assessment & Plan (01/29/2023 10:23 AM EST): FU w/ ENROLLMENT MANAGEMENT VICE PRESIDENT Use Ibuprofen PRN. Pt did not tolerate OCPs Vasomotor rhinitis 01/29/2023 Assessment & Plan (01/29/2023 10:24 AM EST): Recommenced to put a humidifier inside her room Encounter for preventive health examination 01/10 Assessment & Plan (01/29/2023 10:26 AM EST): Discussed with patient re increase fresh fruit and vegetable intake. Counseled re moderate exercise as tolerated, up to 20min/d Patient feels safe at home. PAP smear up to date. Next one due 2025 Eye exam to be referred Labs to be ordered Vaccinations, declined flu and Covid IZ. Check IZ titers. Tdap due 2025 Dental visit up to date. Next one due 04/2023 Primary insomnia 01/29/2023 Assessment & Plan (08/01/2023 12:36 PM EDT): Doing well on hydroxyzine, no change in medications Assessment & Plan (04/02/2023 4:07 PM EST): Did not tolerate Topamax or mirtazapine, will dc. Use hydroxyzine at bedtime Assessment & Plan (01/29/2023 10:24 AM EST): Start Topamax 25mg qHS Urinary frequency 01/29/2023 Assessment & Plan (01/29/2023 10:25 AM EST): Recommended to continue Kegel exercises and FU w/ ENROLLMENT MANAGEMENT VICE PRESIDENT FU in 3 months Abnormal uterine bleeding 03/19/2022 Assessment & Plan (02/04/2024 1:07 PM EST): Seems to be improving on Provera 10 mg x 1 week per month. FU with ENROLLMENT MANAGEMENT VICE PRESIDENT. Monitor hemoglobin. Anxiety 03/19/2022 Iron deficiency anemia due to chronic blood loss 03/19/2022 Assessment & Plan (02/04/2024 1:35 PM EST): Did not tolerate Poly-iron, hemoglobin remains unstable. I gave her information about iron rich products. FU CBC and iron status in 3 months. Assessment & Plan (08/01/2023 12:39 PM EDT): Minimal, hemoglobin is fairly stable Take MVI w/ iron as she did not tolerate iron gluconate Assessment & Plan (04/02/2023 4:09 PM EST): Due to DUB, didn't tolerate Iron and hasn't started OCPs. Change to Iron gluconate to see if it is better tolerated Start Omeprazole at bedtime to help with GERD sxs associated to iron tabs. I gave her infor re Iron rich meals. Fu in 3-4m, if not improved, may need hematology referral for parenteral Iron. Assessment & Plan (01/29/2023 10:22 AM EST): Most likely due to , did not take iron supplements. 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 Premenstrual tension syndrome 03/19/2022 Migraine without aura 03/11/1960 Assessment & Plan (01/29/2023 10:22 AM EST): Take Tylenol daily + start Topamax which will help with insomnia Resolved Problems Problem Noted Date Diagnosed Date Resolved Date Menopausal flushing 03/19/2022 03/19/19 23 Encounters Date Type Department Care Team Description 05/19/2024 8:40 AM EDT Office Visit [facility] [address] [place] [phone] Bianca Ramírez MD Vagina, candidiasis (Primary Dx); UTI symptoms 05/19/2024 Telephone [facility] [address] [place] [phone] Travisluis fteddy Dillan, CNM No Show 05/18/2024 Telephone [facility] [address] [place] [phone] Pearl Valentine MD Nurse Triage 03/26/2024 8:00 AM EST Office Visit [facility] [address] [place] [phone] Beatriz Noble 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 (Primary Dx) 03/18/2024 Telephone [facility] [address] [place] [phone] Karen Alford MA May recall 03/13/2024 8:00 AM EST Office Visit [facility] [address] [place] [address] Natalie Harden, DDS 03/13/[address] [phone] Pearl Valentine MD May recall 03/12/2024 Refill [facility] [address] [place] [phone] Pearl Valentine MD Primary insomnia from Last 3 Months Immunizations Name Administration Dates Next Due DTaP 04/19/1991, 1,06/26/1989,1986,11/02/1985 Hep B, Adolescent or Pediatric 02/19/2011,1999,11/28/1998 IPV 07/07/1990, 0,05/07/1986,1985 Influenza injectable quadriv alent IIV4 with preservative 12/25/2017,01/24/2016 Influenza injectable quadriv alent preservative free 04/02/2023 Influenza, IIV3, injectable 02/19/2011 Influenza, Split (incl. shantell fied surface antigen) 12/08/2012 Qian SARS-CoV-2 Vaccination 05/25/2020 MMR 11/28/1998,06/26/1989 Pfizer Covid-19 Vaccine 12+ 01/05/2021 TD (adult), 2 Lf tetanus tox oid, preservative free, adsorbed 11/28/1998 Tdap 09/06/2015 Social History Tobacco Use Types Packs/Day Years Used Date Smoking Tobacco: Some Days Cigarettes Smokeless Tobacco: Never Tobacco Cessation:Ready to Q uit: Not Asked; Counseling Given: Not Answered Alcohol Use Standard Drinks/Week Comments Yes 0 [...] Orientation Straight 01/08/2022 10 :15 AM EDT Last Filed Vital Signs Vital Sign Reading Time Taken Comments Blood Pressure 124/81 05/19/2024 8:47 AM EDT Pulse 69 05/19/2024 8:47 AM EDT Temperature 36.7 ??C (98.1 ??F) 05/19/2024 8:47 AM ED T Respiratory Rate 16 05/19/2024 8:47 AM EDT Oxygen Saturation 98% 05/19/2024 8:47 AM EDT Inhaled Oxygen Concentration - - Weight 77.1 kg (170 lb) 05/19/2024 8:47 AM EDT Height 162.6 cm (5' 4 ) 02/04/2024 10:39 AM EST Body Mass Index 29.18 02/04/2024 10:39 AM EST Plan of Treatment Upcoming Encounters Date Type Department Care Team (Late st Contact Info) Description 06/04/2024 2:30 PM EDT Office Visit [facility] [address] [place] [address] Ginny Kee, OD [address] [place] [address] Health Maintenance Due Date Last Done Comments Alcohol/Substance Use Screening 1996 Pneumococcal Vaccine: Pediatrics (0 to 5 Years) and At-Risk Patients (6 to 49) Years) (1 of 2 - PCV) 11/06/2003 Hepatitis B Vaccines (3 of 3 - 3-dose series) 04/16/2011 02/19/2011, 12/01/1999, 11/28/1998 COVID-19 Vaccine (3 - season) 2023 01/05/2021, 05/25/2020 Influenza Vaccine (#1) 2023 , 12/25/2017, 01/24/2016, Additional history exists Depression Screening 01/30/2024 01/29/2023, 01/30/20 Cervical Cancer Screening 05/26/2024 HPV/Cotest 05/26/2024 12/27/2022, 12/09, 12/27/2021, Additional history exists Pap Smear 05/26/2024 12/27/2022, 12/09, 11/02/2020 SDOH Screening 07/23/2024 07/24/2023 Dental Oral Exam 09/24/2024 03/26/2024, , 10/26/2022, Additional history exists Dental Prophylaxis 09/24/2024 03/26/2024, 0 07/05/2023, 10/26/2022, Additional history exists Family Planning (PISQ) 12/25/2024 12/26/2023 Tobacco Screening 03/26/2025 03/26/2024 Dental X-Ray: Bitewings 03/27/2025 03/26/19, 06/25/2023, 09/20/2022, Additional history exists DTaP/Tdap/Td Vaccines (6 - Td or Tdap) 09/05/2025 09/06/2015, 11/28/1998, 04/19/1991, Additional history exists Dental X-Ray: Full Mouth 09/21/2025 09/20/2022 Lipid Panel 01/30/2028 01/29/2023 Zoster Vaccines (1 of 2) 2034 RSV Patients and Patients Aged 60 years or older (1 - 1-dose 75+ series) 11/06/2059 IPV Vaccines Completed 07/07/1990, 06/09, 05/07/1986, Additional history exists HIV Screening Completed 04/26/2022 Hepatitis C Screening Completed 01/29/2023, 023 HIB Vaccines Aged Out No longer eligi ble based on patient's age to complete this topic HPV Vaccines Aged Out No longer eligi ble based on patient's age to complete this topic Hepatitis A Vaccines Aged Out No long er eligible based on patient's age to complete this topic Meningococcal Vaccine Aged Out No inocente fadia eligible based on patient's age to complete this topic RSV under 20 months Aged Out No longe r eligible based on patient's age to complete this topic Rotavirus Vaccines Aged Out No longer eligible based on patient's age to complete this topic Procedures Procedure Name Priority Date/Time Associated Diagnosis Comments URINALYSIS, COMPLETE, WITH REFLEX TO CULTURE Routine 05/19/2024 8:58 AM EDT UTI symptoms POCT URINALYSIS DIPSTICK Routine 05/19/2024 8:57 AM EDT UTI symptoms PERIODIC ORAL EVALUATION - ESTABLISHED PATIENT Routine 03/26/2024 8:00 AM EST 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 ORAL HYGIENE INSTRUCTIONS Routine 03/26/2024 8:00 AM EST 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 INTRAORAL - PERIAPICAL EACH ADDITIONAL RADIOGRAPHIC IMAGE Routine 03/26/2024 8:00 AM EST 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 INTRAORAL - PERIAPICAL FIRST RADIOGRAPHIC IMAGE Routine 03/26/2024 8:00 AM EST 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 BITEWINGS - 4 RADIOGRAPHIC IMAGES Routine 03/26/2024 8:00 AM EST 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 CASE PRESENTATION, DETAILED AND EXTENSIVE TREATMENT PLANNING Routine 03/26/2024 8:00 AM EST 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 PROPHYLAXIS - ADULT Routine 03/26/2024 8 :00 AM EST 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 3 M RESIN-BASED COMPOSITE - 1 SURF, POSTERIOR Routine 03/13/2024 8:00 AM EST HEPATITIS PANEL, GENERAL Routine 01/29/2023 10:18 AM EST Encounter for preventive health examination LIPID PANEL WITH REFLEX TO DIRECT LDL Routine 01/29/2023 10:18 AM EST Encounter for preventive health examination HPV MRNA E6/E7 REFLEX TO HPV 16, 18/45 Routine 12/27/2022 11:21 AM EDT PAP SMEAR Routine 12/27/2022 11:21 AM EDT INTRAORAL - COMPLETE SERIES OF RADIOGRAPHIC IMAGES Routine 09/20/2022 8:00 AM EDT HIV ANTIBODY/ANTIGEN ([place] DPH) Routine 04/26/2022 3:58 PM EST from Last 3 Months or Most Recently Relevant to Health Maintenance Results * (ABNORMAL) Urinalysis, Complete, with Reflex to Culture (05/19/2024 8:58 AM EDT) Color Urine Yellow [facility] Appearance Urine Clear [facility] PH 8.5 5.0 - 9.0 [facility] Glucose Urine UA Negative Negative mg/dL [facility] Urine Blood Trace(A) Negative [facility] Specific [place] - Urine 1.020 1.005 - 1.025 [facility] Urine Protein Trace Neg-Trace mg/dL [facility] Urine Ketones Negative Negative mg/dL [facility] Nitrite Urine Negative Negative [facility] Leukocyte Esterase Urine Small (1+)(A) Negative [facility] RBC Urine 0-2 0 - 2 /HPF [facility] Urine WBC 0-5 0 - 5 /HPF [facility] Urine Squamous Epithelial Cell 0-2 0 - 2 /HPF [facility] Urine Bacteria None Seen None Seen [facility] Hyaline Casts, Urine 0-2 0 - 2 /LPF [facility] Urine 05/19/2024 8:58 AM EDT 05/19/2024 5:25 PM EDT Narrative [facility] - 05/19/2024 5:43 PM EDT Urine, Clean Catch Bianca Ramírez MD LAB URINE ORDERABLES Final Result [facility] [address] [place] [phone] * (ABNORMAL) POCT urinalysis dipstick manually resulted (05/19/2024 8:57 AM EDT) Color, UA Yellow Clarity, UA Clear Glucose, UA Negative Bilirubin, UA Negative Ketones, UA Negative Spec Grav, UA 1.020 Blood, UA Positive(A) Negative, None Detected pH, UA 7.5 Protein, UA 1+ 70+ Comment:30mg Urobilinogen, UA 1.0 Leukocytes, UA Few 15(A) Negative, Rare, Trace Nitrite, UA Negative Negative, None Detected Appearance, UA OK Urine 05/19/2024 8:57 AM EDT Bianca Ramírez MD POINT OF CARE TEST ENTER/E DIT ORDERABLES Final Result * Lipid Panel with Reflex to Direct LDL (01/29/2023 10:18 AM EST) Triglycerides 67 <150 mg/dL [facility] Comment:Desirable Triglyceri de: less than 150 mg/dLBorderline High Triglyceride 150-199 mg/dLHigh Triglyceride: 200-499 mg/dLVery High Triglyceride: greater than or equal to 5OO mg/dL Cholesterol 132 <200 mg/dL [facility] Comment:Desirable Cholestero l: less than 200 mg/dLBorderline High Cholesterol: 200-239 mg/dLHigh Cholesterol: greater than 239 mg/dL LDL Cholesterol Calculated 57 <100 mg/dL [facility] Comment:Desirable LDL: less than 100 mg/dLNear Optimal/Above Optimal LDL: 110- 129 mg/dLBorderline High LDL: 130-159 mg/dLHigh LDL: 160-189 mg/dLVery High LDL: greater than or equal to 190 mg/dL HDL Cholesterol 62 >40 mg/dL [facility] Comment:Desirable HDL: great er than 40 mg/dL Note: This HDL assay may give artificially low results in patients with liver disease. Blood 01/29/2023 10:1 8 AM EST 01/29/2023 11:18 AM EST us Pearl Valentine MD LAB BLOOD ORDERABLES Fin al Result Performing Organization Address [facility] de Phone Number [facility] [address] [place] [phone] * Hepatitis Panel, General (01/29/2023 10:18 AM EST) Hepatitis A IgM Nonreactive Nonreactive [facility] Comment:IgM antibodies to WYNN V not detected; does not exclude earlyacute or recovered HAV infection. ~Hepatitis B Surface Antibody NONREACTIVE Nonreactive [facility] Comment:Nonreactive: < 8.00 mIU/mL Hepatitis B Core Antibody Nonreactive Nonreactive [facility] Hepatitis C Antibody Nonreactive Nonreactive [facility] Comment:Antibodies to HCV no t detected; does not exclude early acuteHCV infection. Hepatitis B Surface Ag Negative Negative [facility] Blood 01/29/2023 10:1 8 AM EST 01/29/2023 11:18 AM EST Pearl Valentine MD LAB BLOOD ORDERABLES Fin al Result Performing Organization Address [facility] de Phone Number [facility] [address] [place] [address] [phone] * HPV mRNA E6/E7 w/Reflex to HPV Genotypes 16, 18/45 (12/27/2022 11:21 AM EDT) HPV nRNA E6/E7 Not Detected Not Detected [facility] Comment:Methodology: Transcr iption-Mediated AmplificationThis assay detects E6/E7 viral messenger RNA (mRNA) from 14high-risk HPV types (16,18,31,33,35,39,45,51,52,56,58,59,66,68).Cervical sources are required for HPV testing.If a vaginal source from a patient who has had atotal hysterectomy with removal of cervix wassubmitted, please contact the testing laboratoryfor alternative testing options.For additional information, please refer [email or web address]/faq/DPF685i8(This link if provided for information/educational purposes only.)THIS TEST WAS PERFORMED AT:[facility].[address] [place] [id number] NIX MD HPV mRNA E6/E7 TNP [facility] HPV 16 RNA [facility] HPV 18/45 RNA [facility] 12/27/2022 11:2 1 AM EDT 12/28/2022 8:45 AM EDT Dillan THRASHER LAB CYTOLOGY ORDERABLES F inal Result [facility] [address] [place] [phone] [phone] * Pap Smear (12/27/2022 11:21 AM EDT) 12/27/2022 11:2 1 AM EDT 12/28/2022 8:45 AM EDT Narrative [facility] - 01/01/2023 12:14 PM EDT ----- ------- Name: Jesica Dawson ? Age/Sex: 37/F ? : 1985 Unit#: [id number] ?? Attend Dr: DILLAN NAPIER CNM ?Re12/27/22 ?Status: DEP REF ? Location: HO.LNP ?Disch: ? ----- ------- SPEC : [id number] ?RECD: 12/28/22 ? STATUS: ??SOUT ? REQ NUM: [id number] ? NIEVES: 12/27/22112 ? SUBM DR: DILLAN NAPIER CNM ? ENTERED: ??12/28/22 ?SP TYPE: Pap Smr ?OTHR : ? ORDERED: ??Pap Smear ? Interpretation ?? Satisfactory for evaluation. ?? Mild inflammation. ?? Negative for intraepithelial lesion or malignancy. ?HPV mRNA E6/E7: ?NOT DETECTED ? This assay detects E6/E7 viral messenger RNA (mRNA) from 14 high-risk HPV types (16, 18, ?? 31, 33, 35, 39, 45, 51, 52, 56, 58, 59, 66, 68) ?? HPV testing performed by [facility], [place], [place]. ??See reference laboratory ?? pion of the EMR for entire report. ?Clinical Information LMP: Unknown date Previous PAP test: 2021, NIL HPV + Other history: NIL HPV + 2020 and 2021, negative colposcopy 04/2022 ? Material Received ?? ThinPrep-Vaginal/Cervical ----- ------- Signed (signature on file) KAROLINA Olson (ASCP) 01/01/23 1214 ? ----- ------- ? END OF REPORT ? Dillan Napier [facility] CYTOLOGY ORDERABLES F inal Result Performing Organization Address [facility] Co de Phone Number [facility] [address] [place] [address] [phone] * HIV Ab/Ag (NOLAN JACOBS) (04/26/2022 3:58 PM EST) [facility] HIV AB/AG Nonreactive Nonreactive [facility] Comment:HIV-1 p24 Ag and/or HIV-1/HIV-2 Ab not detected.A test result that is nonreactive does not exclude thepossibility of exposure to or infection with HIV-1 and/orHIV-2. Nonreactive results in this assay for individualswith prior exposure to HIV-1 and/or HIV-2 may be due toantigen and antibody levels that are below the limit ofdetection of this assay.The [employer] HIV Ag/Ab Combo assay result andsupplemental assay results should be interpreted inconjunction with the patient's clinical presentation,history and other laboratory results. If the results areinconsistent with clinical evidence, additional testing issuggested to confirm the result. 04/26/2022 3:58 PM EST 04/26/2022 3:58 PM EST [facility] External Provider LAB BLO OD ORDERABLES Final Result Performing Organization Address [facility] Co de Phone Number [facility] [address] [place] [address] [phone] from Last 3 Months or Most Recently Relevant to Health Maintenance Insurance [facility] C3 DENTAL-[facility] MEDICAID STAND ADULT Care Teams Network Technology Instructor Relationship Specialty Start Date End Date Pearl Valentine MD [address] [place] [address] NOLAN Barth [phone] PCP - General Family Medicine 03/27/18
--- OUTSIDE RECORDS SUMMARY | 2024-05-19 19:33 | XMS_ITS | Encounter Summary ---
Author Organization [employer] Address [address] [place] [address] Care Team Providers Care Assisted Living Housekeeper Name Role Phone Pearl Valentine MD Primary Care Provider + Reason for Visit * Reason Comments UTI Encounter Details Date Type Department Care Team ([facility] st Contact Info) Description 05/19/2024 8:40 AM EDT Office Visit [facility] [address], [place] [phone] Bianca Ramírez MD [address], [place] [phone] Vagina, candidiasis (Primary Dx); UTI symptoms Social History Tobacco Use Types Packs/Day Years [...] AM EDT documented as of this encounter Last Filed Vital Signs Vital Sign Reading Time Taken Comments Blood Pressure 124/81 05/19/2024 8:47 AM EDT Pulse 69 05/19/2024 8:47 AM EDT Temperature 36.7 ??C (98.1 ??F) 05/19/2024 8:47 AM ED T Respiratory Rate 16 05/19/2024 8:47 AM EDT Oxygen Saturation 98% 05/19/2024 8:47 AM EDT Inhaled Oxygen Concentration - - Weight 77.1 kg (170 lb) 05/19/2024 8:47 AM EDT Height - - Body Mass Index 29.18 02/04/2024 10:39 AM EST documented in this encounter Progress Notes * Bianca Ramírez MD - 05/19/2024 8:40 AM EDT Subjective Jesica Alexis is a 38 y.o. female here for evaluation of itching, white discharge, no dysyruisa, no increased frequency. Has one male partner. beginning 2 days ago. Other associated symptomsinclude: none. Fever has been absent. Symptoms which are not present include: abdominal pain, chills, hematuria, urinary frequency, urinary incontinence, and urinary urgency. UTI history: none. Antibiotic use within past three months: .SJBABXUSE: none The following portions of the chart were reviewed this encounter and updated as appropriate: Review of Systems Pertinent items are noted in HPI Objective BP 124/81 (BP Location: Right arm, Patient Position: Sitting, BP Cuff Size: Adult) Pulse 69 Temp 98.1 ??F (36.7 ??C) (Temporal) Resp 16 Wt 170 lb (77.1 kg) SpO2 98% BMI 29.18 kg/m?? Physical Exam Genitourinary: Comments: Mild erythremia and white discharge in introitus Wet mount with budding yeast and hyphae, no clue cells, negative whiff test. Office Visit on 05/19/2024 Component Date Value Ref Range Status Color, UA 05/19/2024 Yellow Final Clarity, UA 05/19/2024 Clear Final Glucose, UA 05/19/2024 Negative Final Bilirubin, UA 05/19/2024 Negative Final Ketones, UA 05/19/2024 Negative Final Spec Grav, UA 05/19/2024 1.020 Final Blood, UA 05/19/2024 Positive (A) Negative, None Detected Final pH, UA 05/19/2024 7.5 Final Protein, UA 05/19/2024 1+ 70+ Final 30mg Urobilinogen, UA 05/19/2024 1.0 Final Leukocytes, UA 05/19/2024 Few 15 (A) Negative, Rare, Trace Final Nitrite, UA 05/19/2024 Negative Negative, None Detected Final Appearance, UA 05/19/2024 OK Final Jesica was seen today for uti. Diagnoses and all orders for this visit: Vagina, candidiasis (Primary) - clotrimazole (Lotrimin) 1 % vaginal cream; Insert one applicator per vagina at bedtime for 7 nights - POCT Wet Mount/ARY UTI symptoms - POCT urinalysis dipstick manually resulted - Chlamydia/N. Gonorrhoeae RNA, TMA, Urogenitial - Bacterial Vaginosis Problem List Items Addressed This Visit Vagina, candidiasis - Primary -Wet prep with ARY significant for hyphae and budding yeast. -Candidiasis prevention discussed. Relevant Medications clotrimazole (Lotrimin) 1 % vaginal cream Other Relevant Orders POCT Wet Mount/ARY Other Visit Diagnoses UTI symptoms Relevant Orders POCT urinalysis dipstick manually resulted (Completed) Chlamydia/N. Gonorrhoeae RNA, TMA, Urogenitial Bacterial Vaginosis documented in this encounter Miscellaneous Notes * Assessment & Plan Note - Bianca Ramírez MD - 05/19/2024 9:21 AM EDT Associated Problem(s): Vagina, candidiasis -Wet prep with ARY significant for hyphae and budding yeast. -Candidiasis prevention discussed. documented in this encounter Plan of Treatment Upcoming Encounters Date Type Department Care Team (Late st Contact Info) Description 06/04/2024 2:30 PM EDT Office Visit [facility] [address] [place] [address] Ginny Kee, OD [address] [place] [address] Scheduled Orders Name Type Priority Associated Diagnoses Order Schedule Chlamydia/N. Gonorrhoeae RNA, TMA, Urogenitial Microbiology Routine UTI symptoms Ordered: 05/19/2024 Bacterial Vaginosis Microbiology Routine UTI symptoms Ordered: 05/19/2024 POCT Wet Mount/ARY Point of Care Testing Routine Vagina, candidiasis Ordered: 05/19/2024 documented as of this encounter Procedures Procedure Name Priority Date/Time Associated Diagnosis Comments URINALYSIS, COMPLETE, WITH REFLEX TO CULTURE Routine 05/19/2024 8:58 AM EDT UTI symptoms POCT URINALYSIS DIPSTICK Routine 05/19/2024 8:57 AM EDT UTI symptoms documented in this encounter Results * (ABNORMAL) Urinalysis, Complete, with Reflex to Culture (05/19/2024 8:58 AM EDT) Color Urine Yellow [facility] Appearance Urine Clear [facility] PH 8.5 5.0 - 9.0 [facility] Glucose Urine UA Negative Negative mg/dL [facility] Urine Blood Trace(A) Negative [facility] Specific [place] - Urine 1.020 1.005 - 1.025 [facility] Urine Protein Trace Neg-Trace mg/dL [facility] Urine Ketones Negative Negative mg/dL [facility] Nitrite Urine Negative Negative [facility] Leukocyte Esterase Urine Small (1+)(A) Negative [facility] RBC Urine 0-2 0 - 2 /HPF [facility] Urine WBC 0-5 0 - 5 /HPF [facility] Urine Squamous Epithelial Cell 0-2 0 - 2 /HPF [facility] Urine Bacteria None Seen None Seen [facility] Hyaline Casts, Urine 0-2 0 - 2 /LPF [facility] Urine 05/19/2024 8:58 AM EDT 05/19/2024 5:25 PM EDT Narrative [facility] - 05/19/2024 5:43 PM EDT Urine, Clean Catch Bianca Ramírez MD LAB URINE ORDERABLES Final Result [facility] [address] [place] [phone] * (ABNORMAL) POCT urinalysis dipstick manually [...] CARE TEST ENTER/E DIT ORDERABLES Final Result documented in this encounter Visit Diagnoses Diagnosis Vagina, candidiasis- Primary Candidiasis of vulva and vagina UTI symptoms documented in this encounter Care Teams Assisted Living Housekeeper Relationship Specialty Start Date End Date Pearl Valentine MD [address] [place] [phone] PCP - General Family Medicine 03/27/18 documented as of this encounter
[2024-05-20 05:20] LABS: CT PCR NOT DETECTED (Not Detect.); NG PCR NOT DETECTED (Not Detect.)
[2024-05-20 09:06] LABS: Bacterial Vaginosis PCR POSITIVE (Negative); Candida Group PCR DETECTED (Not Detect); Candida glab krusei PCR NOT DETECTED (Not Detect); Trichomonas vaginalis PCR NOT DETECTED (Not Detect)
== END 2024-05-19 17:22 | disposition home or self-care (01) ==
LOC: HO.HHCLNP 17:21
PROVIDERS: Visit Provider Family Medicine
DX: R39.9 Unspecified symptoms and signs involving the genitourinary system (principal)
CPT/HCPCS: 81001; 81515; 87086; 87491; 87591

== ENCOUNTER 2024-05-28 07:30 | Outpatient (AMB) | payer MEDICAID, SELFPAY ==
[2024-05-28 07:31] VITALS: BP 118/70; BMI 26.3
--- NOTE | 2024-05-28 07:31 | A.OFFVIS_ITS ---
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 On cyclic progesterone, periods are regular but Complaining of cyclic headache after progesterone withdrawal bleeding. 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 Sexual orientation: Straight/Heterosexual Gender identity: Female Female Reproductive History Menstrual Age of Menarche: 11 Date of last menstrual period: 05/23/24 Date of last pap smear: 12/28/22 Review of Systems Const All systems reviewed & are unremarkable except as noted in HPI and below Card Reports as per HPI Resp Reports as per HPI GI Reports as per HPI and Reports no additional complaints Reports as per HPI Physical Exam Vital Signs: BMI result Body Mass Index 26.3 Const General: cooperative, healthy appearing and comfortable Chest Chest palpation & inspection: normal inspection of the chest and normal palpation of entire chest wall Breast/axilla inspection: normal inspection of the breasts and normal inspection of the axillae Breast/axilla palpation: normal palpation of the breasts, normal palpation of the axillae and no axillary lymphadenopathy Resp Effort & Inspection: normal respiratory effort Auscultation: clear to auscultation bilaterally Percussion: percussion normal Cardio Palpation: normal PMI Rate: regular rate Rhythm: regular rhythm Heart sounds: no murmurs and no rubs Peripheral pulses: Peripheral pulses 2+ throughout GI Inspection: Yes normal to inspection Palpation (GI): Soft to palpation, nontender, no guarding, not rigid and No hepatosplenomegaly present Percussion: Yes normal to percussion Auscultation: normal bowel sounds Rectal Exam - Female: deferred General: Yes bladder normal to palpation External Female Exam: No lesion Speculum Exam - Vagina: normal appearance of the vagina, normal palpation, normal vaginal discharge and not erythematous Speculum Exam - Cervix: normal appearance of the cervix and normal palpation Bimanual exam- vagina & uterus: normal bimanual exam, normal palpation, uterine size normal, bladder normal to palpation, consistency normal and normal palpation Bimanual Exam- Adnexa, other: normal adnexae, no masses and no tenderness Assessment & Plan Assessment & Plan (1) Well woman exam: Comment: History of ANA 1 in 06/01 Code(s): Z01.419 - Encounter for gynecological examination (general) (routine) without abnormal findings Category: Medical Plan: Cotesting done. Mammogram ordered for 11/02. Counseled the patient about the recommended dietary allowance of 1000 mg of Calcium & 600 IU of vitamin D. The patient was instructed to perform monthly self-breast exams and to schedule an annual exam in a year; All questions answered and the patient verbalized understanding. Instructed the patient to schedule annual exam in a year (2) Abnormal uterine bleeding (AUB): Code(s): N93.9 - Abnormal uterine and vaginal bleeding, unspecified Category: Medical Plan: Since the patient is having progesterone induced headache, recommended discontinuing progesterone. Discussed with the patient the results of the options of treatment including Mirena IUD, endometrial ablation and hysterectomy. All pros, cons, risks and benefits if each option was discussed with the patient and the patient decided to go ahead with Mirena IUD so a more detailed discussion about it was conducted including mechanism of action, risks (uterine perforation, infection, injury to bladder, bowel, displacement, and others) benefits (hypo menorrhea, amenorrhea, ...). GC/CT will be taken and the patient was instructed to schedule Mirena IUD insertion on day 1-5 of next cycle . All questions answered, the patient verbalized understanding Orders: Orders 2 MM tomosynthesis screening BI 5 Months Z12.31 - Encounter for screening mammogram for malignant neoplasm of breast Coding Level of Care Code Est Pt Prev Care 18-39y(13244) Diagnoses Well woman exam Z01.419 Abnormal uterine bleeding (AUB) N93.9
== END 2024-05-28 07:54 | disposition home or self-care (01) ==
LOC: HO.HWS 07:30
PROVIDERS: PCP Advanced Practice Midwife; Visit Provider Obstetrics & Gynecology
DX: Z01.419 Encounter for gynecological examination (general) (routine) without abnormal findings (principal); N93.9 Abnormal uterine and vaginal bleeding, unspecified
CPT/HCPCS: 99395; 99459

== ENCOUNTER 2024-05-28 07:30 | Outpatient (REF) | payer MEDICAID, SELFPAY ==
[2024-06-03 14:11] LABS: HPV Genotype 16 Negative (Negative); HPV Genotype 18 Negative (Negative); HPV High Risk Negative (Negative)
== END 2024-05-28 07:31 | disposition home or self-care (01) ==
LOC: HO.LNP 07:30
PROVIDERS: PCP Advanced Practice Midwife; Visit Provider Obstetrics & Gynecology
DX: Z01.419 Encounter for gynecological examination (general) (routine) without abnormal findings (principal); N93.9 Abnormal uterine and vaginal bleeding, unspecified
CPT/HCPCS: 87626; 88175; 99395; 99459

== ENCOUNTER 2024-07-10 11:31 | Outpatient (AMB) | payer MEDICAID, SELFPAY ==
--- NOTE | 2024-07-10 11:31 | MHC.OFFVIS ---
Vital Signs 07/10/24 11:39 Height 5 ft 6 in Weight 163 lb BMI 26.3 Intake Visit Reasons: Mirena insertion Technology Integration Specialist Required: No Information Interpreted: non-clinical & clinical Motion Picture Camera Operator: Motion Picture Camera Operator Present (Josette Cee RAKEL) Accompanied by: Self / Same As Patient Allergies No Known Allergies [No Known Allergies*] Allergy (Verified 07/10/24 11:39) Is last menstrual period known: Yes Last menstrual period: 07/10/24 HPI Comments Details: Presenting complaining of vaginal bleeding after stopping cyclic Provera because it was inducing headaches. Last H&H was within normal in 2022, last ultrasound within normal in 2022 EMB showed inactive endometrium with no evidence of endometrial hyperplasia and/or malignancy few months ago Last GC/CT were negative in 06/02 Last co testing in 06/02 was negative PFSH Medical History Migraine HPV in female Surgical History Hx of tubal ligation Family History Maternal Grandmother Diabetes Breast cancer Mother HTN (hypertension) Social History Household Members: Children Housing: Apartment Alcohol intake: current Alcohol intake frequency: holidays/special occasions only Patient Tobacco Use Status: Former Tobacco user Current occupational status: employed 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 Sexual orientation: Straight/Heterosexual Gender identity: Female Female Reproductive History Menstrual Age of Menarche: 11 Date of last menstrual period: 07/10/24 Review of Systems Const All systems reviewed & are unremarkable except as noted in HPI and below Physical Exam Vital Signs: BMI result Body Mass Index 26.3 General: Yes no CVA tenderness External Female Exam: normal external appearance and normal appearance of the urethra Speculum Exam - Vagina: normal appearance of the vagina, normal palpation, no lesions, no masses and other (No evidence of active vaginal bleeding) Speculum Exam - Cervix: normal appearance of the cervix, normal palpation, no lesions, no masses and nontender Bimanual exam- vagina & uterus: normal bimanual exam, normal palpation, uterine size normal, normal palpation, uterine shape normal, No Cervical tenderness present and non-tender Bimanual Exam- Adnexa, other: normal adnexae Back/Spine/Pelvis Back: no CVA tenderness Office Procedures IUD Insert/Removal Details Details: The patient is presenting for Mirena IUD insertion Urine test was done in the office and was negative; All the contraindications were excluded. The following possible complications were discussed with the patient: Intrauterine , Ectopic , Sepsis, Pelvic Infection, Irregular Bleeding and Amenorrhea, Perforation, Expulsion, Ovarian Cysts, Breast Cancer, The following adverse effects were discussed with the patient: alteration of menstrual bleeding pattern, including: unscheduled uterine bleeding decreased uterine bleeding increased scheduled uterine bleeding female genital tract bleeding ,amenorrhea , genital discharge , vulvovaginitis , breast pain , benign ovarian cyst and associated complications , dysmenorrhea , Gastrointestinal disorders abdominal/pelvic pain, headache/migraine , back pain , acne , depression Alternative options were discussed with the patient including but not limited: control pills, patch, NuvaRing, Depo-medroxyprogesterone acetate, Nexplanon, copper IUD, sterilization, vasectomy, others The procedure was explained in detail to patient , at the end patient signed the informed consent obtained. A no touch technique was used throughout the procedure. A speculum was placed into vagina and cervix was cleaned with betadine). A tenaculum was placed. A plastic sound was advanced through the external and internal os until it reached the fundus of the uterus, the depth was 8 cm. The sound was then withdrawn. The IUD was loaded in a sterile manner and advanced into position. The string was visualized and cut to 3 cm. Tenaculum site hemostatic. All instruments removed from vagina. Patient tolerated the procedure well. NO complications were noted. Patient was instructed to call for fever over 100.4, significant pain unrelieved by Motrin, IUD expulsion, heavy bleeding, or abnormal discharge. In addition, the following clinical considerations were discussed with the patient to call for removal: A stroke or heart attack ,Very severe or migraine headaches ,Unexplained fever ,Yellowing of the skin or whites of the eyes, as these may be signs of serious liver problems , or suspected , Pelvic pain or pain during sex ,HIV positive seroconversion in herself or her partner , Possible exposure to sexually transmitted infections Unusual vaginal discharge or genital sores , severe vaginal bleeding or bleeding that lasts a long time, or if she misses a menstrual period, Inability to feel Mirena's threads Counseled the patient that the IUD does not protect against STI's, recommended use of condoms for the first 7 days post insertion and explained to the patient that condoms are recommended for patients at risk for sexually transmitted infections. Informed the patient that Mirena IUD is FDA approved for 8 years for contraception for 5 years for the treatment of heavy menses Instructed the patient to schedule a Follow up appointment in 4 to 6 weeks following insertion. This note was generated with a voice recognition program. Some errors may have been overlooked during the review of this note. Sometimes these errors may affect the content or meaning of a given sentence. [id number] Insertion Procedure code (CPT) selection complete Office Meds Mirena 21 mcg/24 hr (up to 8 years) 52 mg intrauterine device Performing Provider: Deng De Luna MD [place] [facility] [place] [facility] Documented (not given) by: Deng De Luna MD on 07/10/24 11:58 Dose Route Admin Location Dispensed Lot Number Expiration Date [facility] Methods And Procedures Analyst 1 device intrauterine ea Results AMB Test Urine AMB Test Urine Negative Last Edit by Josette Cee CMA on 07/10/24 11:40 Results Reviewed Results Reviewed: Laboratory Last Values [facility] Negative 07/10/24 11:38 Assessment & Plan Assessment & Plan (1) Abnormal uterine bleeding (AUB): Code(s): N93.9 - Abnormal uterine and vaginal bleeding, unspecified Category: Medical Plan: Urine test done in the office was negative. CBC, TSH, hCG with pelvic ultrasound ordered. Discussed with the patient the results of the work up done and options of treatment including Lysteda, control pills, Mirena IUD, endometrial ablation and hysterectomy. All pros, cons, risks and benefits if each option was discussed with the patient and the patient decided to go ahead with Mirena IUD so a more detailed discussion about it was conducted including mechanism of action, risks (uterine perforation, infection, injury to bladder, bowel, displacement, and others) benefits (hypo menorrhea, amenorrhea, ...). GC/CT were recently taken and were negative , Mirena IUD insertion done, see procedure . Instructions given the patient to call or go to the emergency in case of persistence of vaginal bleeding a follow-up in the office in 6 weeks. All questions answered, the patient verbalized understanding Orders: Orders US pelvic and transvaginal Today N93.9 - Abnormal uterine and vaginal bleeding, unspecified AMB HCG Urine Test Today Z32.02 - Encounter for test, result negative Complete Blood Count no Diff Today N93.9 - Abnormal uterine and vaginal bleeding, unspecified TSH reflex Free T4 Today N93.9 - Abnormal uterine and vaginal bleeding, unspecified HCG Quantitative Today N93.9 - Abnormal uterine and vaginal bleeding, unspecified AMB IUD Insertion/Removal - Practice Supplied Today N93.9 - Abnormal uterine and vaginal bleeding, unspecified Medications: New Mirena (levonorgestrel) 1 device intrauterine ONCE 1 ea 0RF IUD insertion NS N93.9 - Abnormal uterine and vaginal bleeding, unspecified Discontinued medroxyprogesterone (Provera) start Provera 1 tablet daily from day 15-24 cyclically every months, day 1 being 1st day of menses Discontinued Reason: Doctor's Order 10 mg PO DAILY 10 days 30 tabs 3RF Coding Level of Care Code Est Pt Level 3 (31234) Procedure Only Diagnoses Abnormal uterine bleeding (AUB) N93.9 CPT Codes Details - CPT: 33207-OJL Insertion ([id number])
[2024-07-10 11:39] VITALS: BMI 26.3
--- OUTSIDE RECORDS SUMMARY | 2024-07-10 12:29 | XMS_ITS | Clinical Summary ---
Author Organization [facility] Address [address] 7[address] [place] [address] Care Team Providers Care Hire Car Driver Name Role Phone Pearl Valentine MD Primary Care Provider + Allergies No known active allergies Medications omeprazole (PriLOSEC) [address] capsule TAKE 1 CAPSULE BY MOUTH BEFORE BREAKFAST DO NOT CRUSH OR CHEW 90 capsule 1 4 Active Additional Information Patient not taking.Reported on 03/26/2024 Multiple Vitamin (multivitamin) tablet Take 1 tablet by mouth Once per day. 90 tablet 4 Active Additional Information Patient not taking.Reported on 03/26/2024 medroxyPROGESTE Fer (Provera) 10 MG tablet Take 10 mg by mouth Once per day. 1/d x 10d every month on the first day of her menstruation 4 Active Blood Pressure Monitoring (Blood Pressure Cuff) misc Use daily as prescribed 1 each 4 Active fluticasone (Flonase) 50 MCG/ACT nasal spray Administer 1 spray into each nostril 2 times daily for 7 days. Shake gently. Before first use, prime pump. After use, clean tip and replace cap. 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 Advised to start combination OCP Fu w/ [employer] Start MVI w/ iron x 3 m Assessment & Plan (04/02/2023 4:07 PM EST): Hasn't started OCPs, advised to call [employer] to fu, I believe she can start them now, her cycle this and next month can Change. Assessment & Plan (01/29/2023 10:23 AM EST): FU w/ [employer] Use Ibuprofen PRN. Pt did not tolerate [...] to continue Kegel exercises and FU w/ [employer] FU in 3 months Abnormal uterine bleeding 03/19/2022 Assessment & Plan (02/04/2024 1:07 PM EST): Seems to be improving on Provera 10 mg x 1 week per month. FU with [employer]. Monitor hemoglobin. Anxiety 03/19/2022 Iron deficiency anemia [...] BID during menstrual bleeding and FU w/ [employer] She did not tolerate OCP Low vision, [...] Encounters Date Type Department Care Team Description 06/03/2024 Travel 05/28/2024 Orders Only GENERIC EXTERNAL DATA DEPARTMENT Provider, Generic External Data 05/22/2024 Population Health Risk Score [facility] [address] [place] [address] Provider, Population Health Generic 05/20/2024 Telephone [facility] [address] [place] [phone] Bianca Ramírez MD 05/19/2024 8:40 AM EDT Office Visit [facility] [address] [place] [address] [phone] Bianca Ramírez MD Vagina, candidiasis (Primary Dx); UTI symptoms 05/19/2024 Orders Only [facility] [address] [place] [address] [phone] Bianca Ramírez MD 05/19/2024 Telephone [facility] [address] [place] [address] [phone] Dillan Napier, CNM No Show 05/18/2024 Telephone [facility] [address] [place] [address] [phone] Pearl Valentine MD Nurse Triage from Last 3 Months Immunizations Name Administration Dates Next Due DTaP 04/19/1991, 1,06/26/1989,1986,11/02/1985 Hep B, Adolescent or Pediatric 02/19/2011,1999,11/28/1998 IPV 07/07/1990, 0,05/07/1986,1985 Influenza injectable quadriv alent IIV4 with preservative 12/25/2017,01/24/2016 Influenza injectable quadriv alent preservative free 04/02/2023 Influenza, IIV3, injectable 02/19/2011 Influenza, Split (incl. shantell fied surface antigen) 12/08/2012 Second Sight SARS-CoV-2 Vaccination 05/25/2020 MMR 11/28/1998,06/26/1989 Pfizer Covid-19 [...] your housing situation today? I have enrique sing 01/02/[address] you li [...] Care Team (Late st Contact Info) Description 07/14/2024 3:15 PM EDT Office Visit [facility] [address] [place] [place] [address] Ginny Kee, OD [address] [place] [address] Health Maintenance Due Date Last Done Comments [...] history exists Depression Screening 01/30/2024 01/29/2023, 01/30/20 SDOH Screening 07/23/2024 07/24/2023 Dental Oral Exam 09/24/2024 03/26/2024, , 10/26/2022, Additional history exists Dental Prophylaxis 09/24/2024 03/26/2024, 0 07/05/2023, 10/26/2022, Additional history exists Family Planning (PISQ) 12/25/2024 12/26/2023 Tobacco Screening 03/26/2025 03/26/2024 Dental X-Ray: Bitewings 03/27/2025 03/26/19, 06/25/2023, 09/20/2022, Additional history exists DTaP/Tdap/Td Vaccines (6 - Td or Tdap) 09/05/2025 09/06/2015, 11/28/1998, 04/19/1991, Additional history exists Dental X-Ray: Full Mouth 09/21/2025 09/20/2022 Cervical Cancer Screening 05/29/2027 HPV/Cotest 05/29/2027 05/28/2024, 12/09, 12/27/2021, Additional history exists Pap Smear 05/29/2027 05/28/2024, 12/09, 12/27/2021, Additional history exists Lipid Panel 01/30/2028 01/29/2023 Zoster Vaccines (1 [...] Procedure Name Priority Date/Time Associated Diagnosis Comments HPV DNA, LOW/HIGH RISK Routine 05/28/2024 1:00 PM EDT PAP SMEAR Routine 05/28/2024 7:53 AM EDT URINALYSIS, COMPLETE, WITH REFLEX TO CULTURE Routine 05/19/2024 8:58 AM EDT UTI symptoms BACTERIAL VAGINOSIS PANEL Routine 05/19/2024 8:58 AM EDT UTI symptoms CHLAMYDIA/N. GONORRHOEAE RNA, TMA, UROGENITAL Routine 05/19/2024 8:58 AM EDT UTI symptoms POCT URINALYSIS DIPSTICK Routine 05/19/2024 8:57 AM EDT UTI symptoms CULTURE, URINE, ROUTINE Routine 05/19/2024 12:00 AM EDT PROPHYLAXIS - ADULT Routine 03/26/2024 8 :00 AM EST Secondary dental caries associated with failed or defective dental shinto BITEWINGS - 4 RADIOGRAPHIC IMAGES Routine 03/26/2024 8:00 AM EST Secondary dental caries associated with failed or defective dental shinto PERIODIC ORAL EVALUATION - ESTABLISHED PATIENT Routine 03/26/2024 8:00 AM EST Secondary dental caries associated with failed or defective dental shinto HEPATITIS PANEL, GENERAL Routine 01/29/2023 10:18 AM EST Encounter for preventive health examination LIPID PANEL WITH REFLEX TO DIRECT LDL Routine 01/29/2023 10:18 AM EST Encounter for preventive health examination INTRAORAL - COMPLETE SERIES OF RADIOGRAPHIC IMAGES Routine 09/20/2022 8:00 AM EDT HIV ANTIBODY/ANTIGEN ([place] DPH) Routine 04/26/2022 3:58 PM EST from Last 3 Months or Most Recently Relevant to Health Maintenance Results * HPV DNA, Low/High Risk (05/28/2024 1:00 PM EDT) HPV High Risk Negative Negative [facility] HPV Genotype 16 Negative Negative [facility] HPV Genotype 18 Negative Negative [facility] Comment:HPV testing performe d at [facility] (CLIA#[id number]), [address] [place] [address].Testing for HPV was performed using the [employer] AMARIS 6800system. The presence of HPV in the female genital tract isassociated with a number of diseases, including cervicalcarcinoma. The HPV DNA high risk pool tests for HPV 31, 33,35, 39, 45, 51, 52, 56, 58, 59, 66 and 68. The testing forHPV 16 and 18 genotypes has also been performed. A positiveresult indicates detection of nucleic acid sequences fromone or more subtypes, whereas a negative result indicatessuch sequences were not detected. 05/28/2024 1:00 PM EDT 05/28/2024 1:00 PM EDT us Generic External Data Provider LAB BLOOD ORDERAB LES Final Result [facility] [address] [place] [phone] * Pap Smear (05/28/2024 7:53 AM EDT) 05/28/2024 7:53 AM EDT 05/28/2024 12:40 PM EDT [facility] - 06/04/2024 1:49 PM EDT ----- ------- Name: Jesica Dawson ? Age/Sex: 38/F ? : 1985 Unit#: [id number] ?? Attend Dr: Deng De Luna MD ?Re05/28/24 ?Status: DEP REF ? Location: HO.LNP ?Disch: ? ----- ------- SPEC : [id number] ? RECD: 05/28/24-1239 ? STATUS: ??SOUT ? REQ NUM: [id number] ? NIEVES: 05/28/24-0353 ? SUBM DR: Deng De Luna MD ? ENTERED: ??05/28/24-1248 ?SP TYPE: Pap Smr ?OTHR DR: DILLAN NAPIER CNM ? ORDERED: ??Pap Smear ? Interpretation ?? Satisfactory for evaluation (Following reprocessing with acid wash procedure). ?? Negative for intraepithelial lesion or malignancy. ?? Scant cellularity. ?? Abundant blood. ? HPV High Risk: ??Negative ? HPV Genotyping 16: ??Negative ?? HPV Genotyping 18: ??Negative ?Clinical Information LMP: Unknown date Previous PAP test: 12/28/22, ANA 1 ? Material Received ?? Cervix Copies To: ?? DILLAN NAPIER CNM ?? [address] [facility] ?? [place] [address] ? Deng De Luna MD ?? [facility] ?? [address] [facility] [address] ?? [place] [address] ?? [phone] ----- ------- Signed (signature on file) KAROLINA Dacosta (ASCP) 06/04/24 1349 ? ----- ------- ? END OF REPORT ? Generic External Data Provider LAB CYTOLOGY ORDE RABLES Final Result Performing Organization Address [facility]/ZIP Co de Phone Number [facility] [address] [place] [phone] [phone] * (ABNORMAL) Bacterial Vaginosis (05/19/2024 8:58 AM EDT) TRICHOMONAS VAGINALIS DETECTION BY PCR NOT DETECTED Not Detect [facility] BACTERIAL VAGINOSIS DETECTION BY PCR POSITIVE(A) Negative [facility] Comment:The BV organism targ ets of the Xpert Xpress MVP test can becommensal in women; Xpert Xpress MVP positive results forbacterial vaginosis should be considered in conjunction withother clinical and patient information to determine thedisease status. Organisms that are not detected by the XpertXpress MVP test have also been reported to be associatedwith BV and aerobic vaginitis.The Xpert Xpress MVP test performance has not been evaluatedin patients under the age of 14. ANNETTE GROUP DETECTION BY PCR DETECTED(A) Not Detect [facility] Annette glab krusei PCR NOT DETECTED Not Detect [facility] Swab Vaginal structure / Unknown 05/19/2024 8:58 AM EDT 05/19/2024 5:25 PM EDT Bianca Ramírez MD LAB MICROBIOLOGY - GENERAL ORDERABLES Final Result Performing Organization Address [facility]/ZIP Co de Phone Number [facility] [address] [place] [phone] * (ABNORMAL) Urinalysis, Complete, with Reflex to Culture (05/19/2024 8:58 AM EDT) Color Urine Yellow [facility] Appearance Urine Clear [facility] PH 8.5 5.0 - 9.0 [facility] Glucose Urine UA Negative Negative mg/dL [facility] Urine Blood Trace(A) Negative [facility] Specific [place] - Urine 1.020 1.005 - 1.025 [facility] Urine Protein Trace Neg-Trace mg/dL [facility] Urine Ketones Negative Negative mg/dL [facility] Nitrite Urine Negative Negative [facility] Leukocyte Esterase Urine Small (1+)(A) Negative [facility] RBC Urine 0-2 0 - 2 /HPF [facility] Urine WBC 0-5 0 - 5 /HPF [facility] Urine Squamous Epithelial Cell 0-2 0 - 2 /HPF [facility] Urine Bacteria None Seen None Seen [facility] Hyaline Casts, Urine 0-2 0 - 2 /LPF [facility] Urine 05/19/2024 8:58 AM EDT 05/19/2024 5:25 PM EDT Narrative [facility] - 05/19/2024 5:43 PM EDT Urine, Clean Catch us Bianca Ramírez MD LAB URINE ORDERABLES Final Result [facility] [address] [place] [phone] * Chlamydia/N. Gonorrhoeae RNA, TMA, Urogenitial (05/19/2024 8:58 AM EDT) Pathologist [facility] CT PCR NOT DETECTED Not Detect. [facility] Comment:A not detected test result does not exclude the possibilityof infection because test results can be affected byimproper specimen collection, concurrent antibiotic therapy,or the number of organisms in the specimen which may bebelow the sensitivity of the test. As with many diagnostictests, results from the Xpert CT/NG assay should beinterpreted in conjunction with other laboratory andclinical data available to the clinician.Xpert CT/NG performance has not been evaluated in patientsless than 14 years of age. The assay should not be used forthe evaluationof suspected sexual abuse or for other medico-legalindications. Additional testing is recommended in anycircumstance when false positive or false negative resultscould lead to adverse medical, social or psychologicalconsequences. NG PCR NOT DETECTED Not Detect. [facility] Comment:A not detected test result does not exclude the possibilityof infection because test results can be affected byimproper specimen collection, concurrent antibiotic therapy,or the number of organisms in the specimen which may bebelow the sensitivity of the test. As with many diagnostictests, results from the Xpert CT/NG assay should beinterpreted in conjunction with other laboratory andclinical data available to the clinician.Xpert CT/NG performance has not been evaluated in patientsless than 14 years of age. The assay should not be used forthe evaluationof suspected sexual abuse or for other medico-legalindications. Additional testing is recommended in anycircumstance when false positive or false negative resultscould lead to adverse medical, social or psychologicalconsequences. Swab (Urine, Random) 05/19/2024 8:58 AM EDT 05/19/2024 5:25 PM EDT Narrative [facility] - 05/20/2024 5:20 AM EDT Vaginal us Bianca Ramírez MD LAB MICROBIOLOGY - GENERAL ORDERABLES Final Result [facility] [address] [place] [phone] * (ABNORMAL) POCT urinalysis dipstick manually [...] TEST ENTER/E DIT ORDERABLES Final Result * Culture, Urine, Routine (05/19/2024 12:00 AM EDT) Urine Urine specimen obtained by clean catch procedure / Unknown 05/19/2024 05/19/2024 Comment:UACC Narrative [facility] - 05/21/2024 10:31 AM EDT Urine Culture No growth. Specimen Source: Urine clean catch Bianca Ramírez MD LAB MICROBIOLOGY - GENERAL ORDERABLES Final Result [facility] [address] [place] [phone] * Lipid Panel with Reflex to Direct LDL (01/29/2023 10:18 AM EST) Triglycerides 67 <150 mg/dL [facility] Comment:Desirable Triglyceri de: less than 150 mg/dLBorderline High Triglyceride 150-199 mg/dLHigh Triglyceride: 200-499 mg/dLVery High Triglyceride: greater than or equal to 5OO mg/dL Cholesterol 132 <200 mg/dL [facility] Comment:Desirable Cholestero l: less than 200 mg/dLBorderline High Cholesterol: 200-239 mg/dLHigh Cholesterol: greater than 239 mg/dL LDL Cholesterol Calculated 57 <100 mg/dL [facility] Comment:Desirable LDL: less than 100 mg/dLNear Optimal/Above Optimal LDL: 110- 129 mg/dLBorderline High LDL: 130-159 mg/dLHigh LDL: 160-189 mg/dLVery High LDL: greater than or equal to 190 mg/dL HDL Cholesterol 62 >40 mg/dL [facility] Comment:Desirable HDL: great er than 40 mg/dL Note: This HDL assay may give artificially low results in patients with liver disease. Blood 01/29/2023 10:1 8 AM EST 01/29/2023 11:18 AM EST Pearl Valentine MD LAB BLOOD ORDERABLES Fin al Result Performing Organization Address [facility] de Phone Number [facility] [address] [place] [phone] * Hepatitis Panel, General (01/29/2023 10:18 AM EST) Hepatitis A IgM Nonreactive Nonreactive [facility] Comment:IgM antibodies to WYNN V not detected; does not exclude earlyacute or recovered HAV infection. ~Hepatitis B Surface Antibody NONREACTIVE Nonreactive [facility] Comment:Nonreactive: < 8.00 mIU/mL Hepatitis B Core Antibody Nonreactive Nonreactive [facility] Hepatitis C Antibody Nonreactive Nonreactive [facility] Comment:Antibodies to HCV no t detected; does not exclude early acuteHCV infection. Hepatitis B Surface Ag Negative Negative [facility] Blood 01/29/2023 10:1 8 AM EST 01/29/2023 11:18 AM EST Pearl Valentine MD LAB BLOOD ORDERABLES Fin al Result Performing Organization Address [facility] de Phone Number [facility] [address] [place] [phone] * HIV Ab/Ag ([place] DP) (04/26/2022 3:58 PM EST) HIV AB/AG Nonreactive Nonreactive [facility] Comment:HIV-1 p24 Ag and/or HIV-1/HIV-2 Ab not detected.A test result that is nonreactive does not exclude thepossibility of exposure to or infection with HIV-1 and/orHIV-2. Nonreactive results in this assay for individualswith prior exposure to HIV-1 and/or HIV-2 may be due toantigen and antibody levels that are below the limit ofdetection of this assay.The [employer] HIV Ag/Ab Combo assay result andsupplemental assay results should be interpreted inconjunction with the patient's clinical presentation,history and other laboratory results. If the results areinconsistent with clinical evidence, additional testing issuggested to confirm the result. 04/26/2022 3:58 PM EST 04/26/2022 3:58 PM EST [facility] External Provider LAB BLO OD ORDERABLES Final Result [facility] [address] [place] [phone] from Last 3 Months or Most Recently Relevant to Health Maintenance Insurance [facility] C3 DENTAL-[facility] MEDICAID STAND ADULT Care Teams Hire Car Driver Relationship Specialty Start Date End Date Pearl Valentine MD [address] [place] [address] [place] [phone] PCP - General Family Medicine 03/27/18
--- OUTSIDE RECORDS SUMMARY | 2024-07-10 12:29 | XMS_ITS | Encounter Summary ---
Author Organization [facility] Address [address] [place] [address] [address] [place] [address] Care Team Providers Care Gas Compressor Operator Name Role Phone Pearl Valentine MD Primary Care Provider + Reason for Referral * Imaging (Routine) - Closed Specialty Diagnoses / Procedures Referred By Contac t Referred To Contact Diagnoses Ovarian cyst, right Procedures Us Pelvis complete Sofya Fierro CNM [address] [place] [address] Phone: tel: fax: [address] [phone] Phone: tel: fax: Referral ID Status Reason Start Date Expiration Date Visits Re quested Visits Authorized [id number] Closed 03/22/2022 09/18/2022 1 1 * Imaging (Routine) - Closed Specialty Diagnoses / Procedures Referred By Contac t Referred To Contact Diagnoses Ovarian cyst, right Procedures US Pelvis Transvaginal Sofya Fierro CNM [address] [place] [address] Phone: tel: fax: [address] [phone] Phone: tel: fax: Referral ID Status Reason Start Date Expiration Date Visits Re quested Visits Authorized [id number] Closed 03/22/2022 09/18/2022 1 1 Encounter Details Date Type Department Care Team (Late Contact Info) Description 03/22/2022 Orders Only [facility] [address] [place] [address] Sofya Fierro CNM [address] [place] [address] Ovarian cyst, right (Primary Dx) Social History [...] Department Care Team (Late Contact Info) Description 07/14/2024 3:15 PM EDT Office Visit [facility] [address] [place] [address] Targustavo, Ginny, OD [address] [place] [address] Scheduled Orders Name Type Priority Associated Diagnoses Orde r Schedule US Pelvis Transvaginal Imaging Routine Ovarian cyst, right Expected: 03/22/2022, Expires: 03/22/2023 Us Pelvis complete Imaging Routine Ovarian cyst, right Expected: 03/22/2022, Expires: 03/22/2023 documented as of this encounter Visit Diagnoses Diagnosis Ovarian cyst, right- Primary Other and unspecified ovarian cyst documented in this encounter Care Teams Gas Compressor Operator Relationship Specialty Start Date End Date Pearl Valentine MD [address] [place] [phone] PCP - General Family Medicine 03/27/18 documented as of this encounter
--- OUTSIDE RECORDS SUMMARY | 2024-07-10 12:29 | XMS_ITS | Encounter Summary ---
Author Organization [facility] Address [address] [place] [address] [address] [place] [address] Care Team Providers Care Beekeeper Farmer Name Role Phone Pearl Valentine MD Primary Care Provider + Encounter Details Date Type Department Care Team (Late st Contact Info) Description 02/12/2022 Orders Only [facility] [address] [place], [place] [phone] Sofya Fierro, JOHN [address] [place] [address] Cyst of right ovary Social History Tobacco [...] Description 07/14/2024 3:15 PM EDT Office Visit [facility] [address] [place], [place] [phone] Ginny Kee, OD [address] [place], [place] [phone] Scheduled Orders Name Type Priority Associated Diagnoses Orde r Schedule Us Pelvis complete Imaging Routine Cyst of right ovary Expected: 03/26/2022, Expires: 02/12/2023 documented as of this encounter Visit Diagnoses Diagnosis Cyst of right ovary Other and unspecified ovarian cyst documented in this encounter Care Teams Beekeeper Farmer Relationship Specialty Start Date End Date Pearl Valentine MD [address] [place] [phone] PCP - General Family Medicine 03/27/18 documented as of this encounter
--- OUTSIDE RECORDS SUMMARY | 2024-07-10 12:29 | XMS_ITS | Encounter Summary ---
Author Organization [facility] Address [address] [place] [address] [address] [place] [address] Care Team Providers Care Income Tax Administrator Name Role Phone Pearl Valentine MD Primary Care Provider + Encounter Details Date Type Department Care Team (Latest Contact Info) Description 07/15/2020 Abstract [facility] Dental, Provider, DDS Social History [...] Description 07/14/2024 3:15 PM EDT Office Visit [facility] [address] [place] [address] Ginny Kee, OD [address] [place] [address] documented as of this encounter Visit Diagnoses Not on filedocumented in this encounter Care Teams Income Tax Administrator Relationship Specialty Start Date End Date Pearl Valentine MD [address] [place] [address] PCP - General Family Medicine 03/27/18 documented as of this encounter
== END 2024-07-10 12:12 | disposition home or self-care (01) ==
LOC: HO.HWS 11:31
PROVIDERS: PCP Advanced Practice Midwife; Visit Provider Obstetrics & Gynecology
DX: Z30.430 Encounter for insertion of intrauterine contraceptive device (principal); N93.9 Abnormal uterine and vaginal bleeding, unspecified; Z32.02 Encounter for pregnancy test, result negative
CPT/HCPCS: 58300

== ENCOUNTER → 2024-07-10 11:31 | Outpatient (BNVA) | payer MEDICAID, SELFPAY | PROVIDERS: PCP Advanced Practice Midwife; Visit Provider Obstetrics & Gynecology | DX: Z30.430 Encounter for insertion of intrauterine contraceptive device (principal); Z32.02 Encounter for pregnancy test, result negative; N93.9 Abnormal uterine and vaginal bleeding, unspecified | CPT/HCPCS: 58300; 81025; J7298 ==

== ENCOUNTER 2024-07-21 15:09 | Outpatient (AMB) | payer MEDICAID, SELFPAY ==
--- NOTE | 2024-07-21 15:24 | MHC.OFFVIS ---
Vital Signs 07/21/24 15:27 Height 5 ft 6 in Weight 163 lb BMI 26.3 Intake Visit Reasons: IUD removal per Ship[employer] Cook Required: No Information Interpreted: non-clinical & clinical Tank Builder Supervisor: Tank Builder Supervisor Present (Josette ELLINGTON) Accompanied by: Self / Same As Patient Allergies No Known Allergies [No Known Allergies*] Allergy (Verified 07/21/24 15:27) HPI Comments Details: Presenting complaining of continuous spotting pelvic cramping since IUD insertion no fever or chills no nausea or vomiting. 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 Sexual orientation: Straight/Heterosexual Gender identity: Female Female Reproductive History Menstrual Age of Menarche: 11 Review of Systems Const All systems reviewed & are unremarkable except as noted in HPI and below Physical Exam Vital Signs: BMI result Body Mass Index 26.3 General: Yes no CVA tenderness External Female Exam: normal external appearance and normal appearance of the urethra Speculum Exam - Vagina: normal appearance of the vagina, normal palpation, no lesions and no masses Speculum Exam - Cervix: normal appearance of the cervix, normal palpation, no lesions, no masses, nontender and Other cervical findings present (IUD thread in place) Bimanual exam- vagina & uterus: normal bimanual exam, normal palpation, uterine size normal, normal palpation, uterine shape normal, No Cervical tenderness present and non-tender Bimanual Exam- Adnexa, other: normal adnexae Back/Spine/Pelvis Back: no CVA tenderness Results AMB Test Urine AMB Test Urine Negative Last Edit by Josette Cee CMA on 07/21/24 15:30 Assessment & Plan Assessment & Plan (1) Abnormal uterine bleeding (AUB): Code(s): N93.9 - Abnormal uterine and vaginal bleeding, unspecified Category: Medical Plan: UPT done in the office was negative Pelvic ultrasound appointment to be moved up sooner. Instructions given the patient to keep the scheduled ultrasound and follow-up afterwards, to call in case of temperature above 100.4, nausea or vomiting, pelvic pain. All questions answered, the patient verbalized understanding Orders: Orders AMB HCG Urine Test Today Z32.02 - Encounter for test, result negative Coding Level of Care Code Est Pt Level 3 (21285) Diagnoses Abnormal uterine bleeding (AUB) N93.9
[2024-07-21 15:27] VITALS: BMI 26.3
--- OUTSIDE RECORDS SUMMARY | 2024-07-21 16:08 | XMS_ITS | Encounter Summary ---
Author Organization [employer] Address [address] [facility] [address]t [place] [address] Care Team Providers Care Medical Fee Clerk Name Role Phone Pearl Valentine MD Primary Care Provider + Encounter Details Date Type Department Care Team (Latest Contact Info) Description 07/15/2020 Abstract C CONVERSIONS Dental, Provider, DDS Social History Tobacco Use Types Packs/Day Years Used Date Smoking Tobacco: Never Assessed Comments Unknown Sex and Gender Information Value Date Recorded Sex Assigned at Female 01/08/2022 10:15 AM EDT Legal Sex Female 10:15 AM EDT Gender Identity Female 01/08/2022 10:15 AM EDT Sexual Orientation Straight 01/08/2022 10 :15 AM EDT documented as of this encounter Plan of Treatment Not on file documented as of this encounter Visit Diagnoses Not on filedocumented in this encounter Care Teams Medical Fee Clerk Relationship Specialty Start Date End Date Pearl Valentine MD [address] [place] [phone] PCP - General Family Medicine 03/27/18 documented as of this encounter
--- OUTSIDE RECORDS SUMMARY | 2024-07-21 16:08 | XMS_ITS | Clinical Summary ---
Author Organization [employer] Address [address] [facility] 7t [place] [address] Care Team Providers Care Automotive Engineer Name Role Phone Pearl Valentine MD Primary [...] biopsy on 05/29/23, neg HPV Fu w/ SENIOR BUSINESS DEVELOPMENT ANALYST Next colposcopy on 2024 Menorrhagia with regular cycle 01/29/2023 Assessment & Plan (08/01/2023 12:37 PM EDT): Persistent. Advised to start combination OCP Fu w/ SENIOR BUSINESS DEVELOPMENT ANALYST Start MVI w/ iron x 3 m Assessment & Plan (04/02/2023 4:07 PM EST): Hasn't started OCPs, advised to call SENIOR BUSINESS DEVELOPMENT ANALYST to fu, I believe she can start them now, her cycle this and next month can Change. Assessment & Plan (01/29/2023 10:23 AM EST): FU w/ SENIOR BUSINESS DEVELOPMENT ANALYST Use Ibuprofen PRN. Pt did not tolerate [...] to continue Kegel exercises and FU w/ SENIOR BUSINESS DEVELOPMENT ANALYST FU in 3 months Abnormal uterine bleeding 03/19/2022 Assessment & Plan (02/04/2024 1:07 PM EST): Seems to be improving on Provera 10 mg x 1 week per month. FU with SENIOR BUSINESS DEVELOPMENT ANALYST. Monitor hemoglobin. Anxiety 03/19/2022 Iron deficiency anemia [...] BID during menstrual bleeding and FU w/ SENIOR BUSINESS DEVELOPMENT ANALYST She did not tolerate OCP Low vision, [...] Encounters Date Type Department Care Team Description 07/14/2024 3:15 PM EDT Office Visit [facility] [address] [place] [phone] Ginny Kee, OD Hypermetropia, bilateral (Primary Dx) 07/14/2024 Travel 06/03/2024 Travel 05/28/2024 Orders Only GENERIC EXTERNAL DATA DEPARTMENT Provider, Generic External Data 05/22/2024 Population Health Risk Score Community Care [facility] (C[facility]) Department [address] [facility] [address] [place] [address] Provider, Population Health Generic 05/20/2024 Telephone [facility] [address] [place] [phone] Bianca Ramírez MD 05/19/2024 8:40 AM EDT Office Visit [facility] [address] [place] [phone] Bianca Ramírez MD Vagina, candidiasis (Primary Dx); UTI symptoms 05/19/2024 Orders Only [facility] [address] [place] [phone] Bianca Ramírez MD 05/19/2024 Telephone [facility] [address] [place] [phone] Dillan Napier, CNM No Show 05/18/[address] [address] Pearl Valentine MD Nurse Triage from Last [...] 02/04/2024 10:39 AM EST Plan of Treatment Health Maintenance Due Date Last Done Comments [...] history exists Family Planning (PISQ) 12/25/2024 12/26/2023 Dental X-Ray: Bitewings 03/27/2025 03/26/19, 06/25/2023, 09/20/2022, Additional history exists Tobacco Screening 07/14/2025 07/14/2024 DTaP/Tdap/Td Vaccines (6 - Td or Tdap) [...] caries associated with failed or defective dental religious BITEWINGS - 4 RADIOGRAPHIC IMAGES Routine 03/26/2024 8:00 AM EST Secondary dental caries associated with failed or defective dental religious PERIODIC ORAL EVALUATION - ESTABLISHED PATIENT Routine 03/26/2024 8:00 AM EST Secondary dental caries associated with failed or defective dental religious HEPATITIS PANEL, GENERAL Routine 01/29/2023 10:18 AM EST Encounter for preventive health examination LIPID PANEL WITH REFLEX TO DIRECT LDL Routine 01/29/2023 10:18 AM EST Encounter for preventive health examination INTRAORAL - COMPLETE SERIES OF RADIOGRAPHIC IMAGES Routine 09/20/2022 8:00 AM EDT HIV ANTIBODY/ANTIGEN (DE DPH) Routine 04/26/2022 3:58 PM EST from Last 3 Months or Most Recently Relevant to Health Maintenance Results * HPV DNA, Low/High Risk (05/28/2024 1:00 PM EDT) HPV High Risk Negative Negative [facility] HPV Genotype 16 Negative Negative [facility] HPV Genotype 18 Negative Negative [facility] Comment:HPV testing performe d at [facility] (CLIA#[id number]), [address] [place] [address].Testing for HPV was performed using the [employer] [...] Provider LAB BLOOD ORDERAB LES Final Result [facility] [address] [place] [phone] * Pap Smear (05/28/2024 7:53 AM EDT) 05/28/2024 7:53 AM EDT 05/28/2024 12:40 PM EDT [facility] - 06/04/2024 1:49 PM EDT ----- ------- Name: Jesica Dawson ? Age/Sex: 38/F ? : 1985 Unit#: [id number] ?? Attend Dr: Deng De Luna MD ?Re05/28/24 ?Status: DEP REF ? Location: HO.LNP ?Disch: ? ----- ------- SPEC : [id number] ? RECD: 05/28/24-1239 ? STATUS: ??SOUT ? REQ NUM: [id number] ? NIEVES: 05/28/24-075 ? SUBM DR: Deng De Luna MD ? ENTERED: ??05/28/24-1248 ?SP TYPE: Pap Smr ?OTHR DR: DILLAN ANPIER CNM ? ORDERED: ??Pap Smear ? Interpretation [...] To: ?? DILLAN NAPIER CNM ?? [address] [facility] ?? [place] [id number] ? Deng De Luna MD ?? [facility] ?? [address] [place] [address] [address] ?? [place] [address] ?? [phone] ----- ------- Signed (signature on file) KAROLINA Dacosta (ASCP) 06/04/24 3023 ? ----- ------- ? END OF REPORT ? us Generic External Data Provider LAB CYTOLOGY JACOBYE RABSAHRA Final Result Performing Organization Address [facility]/ZIP Co de Phone Number [facility] [address] [place] [phone] * (ABNORMAL) Bacterial Vaginosis (05/19/2024 8:58 AM EDT) TRICHOMONAS VAGINALIS DETECTION BY PCR NOT DETECTED Not Detect [facility] BACTERIAL VAGINOSIS DETECTION BY PCR POSITIVE(A) Negative [facility] Comment:The BV organism targ ets of [...] GROUP DETECTION BY PCR DETECTED(A) Not Detect [facility] Annette glab krusei PCR NOT DETECTED Not Detect [facility] Swab Vaginal structure / Unknown 05/19/2024 8:58 AM EDT 05/19/2024 5:25 PM EDT Bianca Ramírez MD LAB MICROBIOLOGY - GENERAL ORDERABLES Final Result Performing Organization Address [facility]/ZIP Co de Phone Number [facility] [address] [place] [phone] * (ABNORMAL) Urinalysis, Complete, with Reflex to Culture (05/19/2024 8:58 AM EDT) Color Urine Yellow [facility] Appearance Urine Clear [facility] PH 8.5 5.0 - 9.0 [facility] Glucose Urine UA Negative Negative mg/dL [facility] Urine Blood Trace(A) Negative [facility] Specific [place] - Urine 1.020 1.005 - 1.025 [facility] Urine Protein Trace Neg-Trace mg/dL [facility] Urine Ketones Negative Negative mg/dL [facility] Nitrite Urine Negative Negative [facility] Leukocyte Esterase Urine Small (1+)(A) Negative [facility] RBC Urine 0-2 0 - 2 /HPF [facility] Urine WBC 0-5 0 - 5 /HPF [facility] Urine Squamous Epithelial Cell 0-2 0 - 2 /HPF [facility] Urine Bacteria None Seen None Seen [facility] Hyaline Casts, Urine 0-2 0 - 2 /LPF [facility] Urine 05/19/2024 8:58 AM EDT 05/19/2024 5:25 PM EDT Narrative [facility] - 05/19/2024 5:43 PM EDT Urine, Clean Catch Bianca Ramírez MD LAB URINE ORDERABLES Final Result [facility] [address] [place] [phone] * Chlamydia/N. Gonorrhoeae RNA, TMA, Urogenitial (05/19/2024 8:58 AM EDT) CT PCR NOT DETECTED Not Detect. [facility] Comment:A not detected test result does [...] psychologicalconsequences. NG PCR NOT DETECTED Not Detect. [facility] Comment:A not detected test result does [...] AM EDT 05/19/2024 5:25 PM EDT Narrative [facility] - 05/20/2024 5:20 AM EDT Vaginal us Bianca Ramírez MD LAB MICROBIOLOGY - GENERAL ORDERABLES Final Result [facility] [address] [place] [phone] * (ABNORMAL) POCT urinalysis dipstick manually [...] UA OK Urine 05/19/2024 8:57 AM EDT us Bianca Ramírez MD POINT OF CARE TEST ENTER/E DIT ORDERABLES Final Result * Culture, Urine, Routine (05/19/2024 12:00 AM EDT) Urine Urine specimen obtained by clean catch procedure / Unknown 05/19/2024 05/19/2024 Comment:UACC Narrative [facility] - 05/21/2024 10:31 AM EDT Urine Culture No growth. Specimen Source: Urine clean catch Bianca Ramírez MD LAB MICROBIOLOGY - GENERAL ORDERABLES Final Result [facility] [address] [place] [phone] * Lipid Panel with Reflex to Direct LDL (01/29/2023 10:18 AM EST) Triglycerides 67 <150 mg/dL [facility] Comment:Desirable Triglyceri de: less than 150 mg/dLBorderline High Triglyceride 150-199 mg/dLHigh Triglyceride: 200-499 mg/dLVery High Triglyceride: greater than or equal to 5OO mg/dL Cholesterol 132 <200 mg/dL [facility] Comment:Desirable Cholestero l: less than 200 mg/dLBorderline High Cholesterol: 200-239 mg/dLHigh Cholesterol: greater than 239 mg/dL LDL Cholesterol Calculated 57 <100 mg/dL [facility] Comment:Desirable LDL: less than 100 mg/dLNear Optimal/Above Optimal LDL: 110- 129 mg/dLBorderline High LDL: 130-159 mg/dLHigh LDL: 160-189 mg/dLVery High LDL: greater than or equal to 190 mg/dL HDL Cholesterol 62 >40 mg/dL [facility] Comment:Desirable HDL: great er than 40 mg/dL Note: This HDL assay may give artificially low results in patients with liver disease. Blood 01/29/2023 10:1 8 AM EST 01/29/2023 11:18 AM EST Pearl Valentine MD LAB BLOOD ORDERABLES Fin al Result Performing Organization Address [facility] de Phone Number [facility] [address] [place] [phone] * Hepatitis Panel, General (01/29/2023 10:18 AM EST) Hepatitis A IgM Nonreactive Nonreactive [facility] Comment:IgM antibodies to WYNN V not detected; does not exclude earlyacute or recovered HAV infection. ~Hepatitis B Surface Antibody NONREACTIVE Nonreactive [facility] Comment:Nonreactive: < 8.00 mIU/mL Hepatitis B Core Antibody Nonreactive Nonreactive [facility] Hepatitis C Antibody Nonreactive Nonreactive [facility] Comment:Antibodies to HCV no t detected; does not exclude early acuteHCV infection. Hepatitis B Surface Ag Negative Negative [facility] Blood 01/29/2023 10:1 8 AM EST 01/29/2023 11:18 AM EST Pearl Valentine MD LAB BLOOD ORDERABLES Fin al Result Performing Organization Address [facility] de Phone Number [facility] [address] [place] [phone] * HIV Ab/Ag (NOLAN ELIJAH) (04/26/2022 3:58 PM EST) HIV AB/AG Nonreactive Nonreactive [facility] Comment:HIV-1 p24 Ag and/or HIV-1/HIV-2 Ab not detected.A test result that is nonreactive does not exclude thepossibility of exposure to or infection with HIV-1 and/orHIV-2. Nonreactive results in this assay for individualswith prior exposure to HIV-1 and/or HIV-2 may be due toantigen and antibody levels that are below the limit ofdetection of this assay.The [employer] Developer HIV Ag/Ab Combo assay result andsupplemental assay results should be interpreted inconjunction with the patient's clinical presentation,history and other laboratory results. If the results areinconsistent with clinical evidence, additional testing issuggested to confirm the result. 04/26/2022 3:58 PM EST 04/26/2022 3:58 PM EST [facility] External Provider LAB BLO OD ORDERABLES Final Result [facility] [address] [place] [phone] from Last 3 Months or Most Recently Relevant to Health Maintenance Insurance [facility] C3 DENTAL-[facility] MEDICAID STAND ADULT Care Teams Automotive Engineer Relationship Specialty Start Date End Date Pearl Valentine MD [address] [place] [address] [place] [phone] PCP - General Family Medicine 03/27/18
--- OUTSIDE RECORDS SUMMARY | 2024-07-21 16:08 | XMS_ITS | Encounter Summary ---
Author Organization [employer] Address [address] [facility] [address]t [place] [address] Care Team Providers Care Sterile Technician Name Role Phone Pearl Valentine MD Primary Care Provider + Encounter Details Date Type Department Care Team (Late st Contact Info) Description 02/12/2022 Orders Only [facility] [address] [place], [place] [phone] Sofya Fierro, PRICEM [address] [place], [place] [phone] Cyst of right ovary Social History Tobacco Use Types Packs/Day Years Used Date Smoking Tobacco: Never Assessed Comments Unknown Sex and Gender Information Value Date Recorded Sex Assigned at Female 01/08/2022 10:15 AM EDT Legal Sex Female 10:15 AM EDT Gender Identity Female 01/08/2022 10:15 AM EDT Sexual Orientation Straight 01/08/2022 10 :15 AM EDT documented as of this encounter Plan of Treatment Scheduled Orders Name Type Priority Associated Diagnoses Orde r Schedule Us Pelvis complete Imaging Routine Cyst of right ovary Expected: 03/26/2022, Expires: 02/12/2023 documented as of this encounter Visit Diagnoses Diagnosis Cyst of right ovary Other and unspecified ovarian cyst documented in this encounter Care Teams Sterile Technician Relationship Specialty Start Date End Date Pearl Valentine MD [address] [place], [place] [phone] PCP - General Family Medicine 03/27/18 documented as of this encounter
--- OUTSIDE RECORDS SUMMARY | 2024-07-21 16:08 | XMS_ITS | Encounter Summary ---
Author Organization [employer] Address [address] [place] [address] [address] [place] [address] Care Team Providers Care Garage Door Technician Name Role Phone Pearl Valentine MD Primary Care Provider + Reason for Referral * Imaging (Routine) - Closed Specialty Diagnoses / Procedures Referred By Contac t Referred To Contact Diagnoses Ovarian cyst, right Procedures Us Pelvis complete Sofya Fierro CNM [address] [place] [address] Phone: tel: fax: [address] [phone] Phone: tel: fax: Referral ID Status Reason Start Date Expiration Date Visits Re quested Visits Authorized [id number] Closed 03/22/2022 09/18/2022 1 1 * Imaging (Routine) - Closed Specialty Diagnoses / Procedures Referred By Contac t Referred To Contact Diagnoses Ovarian cyst, right Procedures US Pelvis Transvaginal Sofya Fierro CNM [address] [place] [address] Phone: tel: fax: [address] [phone] Phone: tel: fax: Referral ID Status Reason Start Date Expiration Date Visits Re quested Visits Authorized [id number] Closed 03/22/2022 09/18/2022 1 1 Encounter Details Date Type Department Care Team (Late st Contact Info) Description 03/22/2022 Orders Only [facility] [address] [place] [address] Sofya Fierro CNM [address] [place] [address] Ovarian cyst, right (Primary Dx) Social History [...] cyst documented in this encounter Care Teams Garage Door Technician Relationship Specialty Start Date End Date Pearl Valentine MD [address] [place] [address] PCP - General Family Medicine 03/27/18 documented as of this encounter
== END 2024-07-21 15:41 | disposition home or self-care (01) ==
LOC: HO.HWS 15:09
PROVIDERS: PCP Advanced Practice Midwife; Visit Provider Obstetrics & Gynecology
DX: N93.9 Abnormal uterine and vaginal bleeding, unspecified (principal); Z32.02 Encounter for pregnancy test, result negative
CPT/HCPCS: 99213

== ENCOUNTER → 2024-07-21 15:09 | Outpatient (BNVA) | payer MEDICAID, SELFPAY | PROVIDERS: PCP Advanced Practice Midwife; Visit Provider Obstetrics & Gynecology | DX: N93.9 Abnormal uterine and vaginal bleeding, unspecified (principal) | CPT/HCPCS: 81025; 99212 ==

== ENCOUNTER 2024-07-30 07:30 | Outpatient (AMB) | payer MEDICAID, SELFPAY ==
--- OUTSIDE RECORDS SUMMARY | 2024-07-30 07:31 | XMS_ITS | Encounter Summary ---
Author Organization [employer] Address [address] [facility] [address]t [place] [address] Care Team Providers Care Museum Attendant Name Role Phone Pearl Valentine MD Primary [...] on filedocumented in this encounter Care Teams Museum Attendant Relationship Specialty Start Date End Date Pearl Valentine MD [address] [place] [phone] PCP - General Family Medicine 03/27/18 documented as of this encounter
--- OUTSIDE RECORDS SUMMARY | 2024-07-30 07:31 | XMS_ITS | Clinical Summary ---
Author Organization [employer] Address [address] [facility] 7[address] [place] [address] Care Team Providers Care Automatic Vulcanizing Operator Name Role Phone Pearl Valentine MD [...] biopsy on 05/29/23, neg HPV Fu w/ ADMINISTRATIVE OFFICE CLERK Next colposcopy on 2024 Menorrhagia with regular cycle 01/29/2023 Assessment & Plan (08/01/2023 12:37 PM EDT): Persistent. Advised to start combination OCP Fu w/ ADMINISTRATIVE OFFICE CLERK Start MVI w/ iron x 3 m Assessment & Plan (04/02/2023 4:07 PM EST): Hasn't started OCPs, advised to call ADMINISTRATIVE OFFICE CLERK to fu, I believe she can start them now, her cycle this and next month can Change. Assessment & Plan (01/29/2023 10:23 AM EST): FU w/ ADMINISTRATIVE OFFICE CLERK Use Ibuprofen PRN. Pt did not tolerate [...] to continue Kegel exercises and FU w/ ADMINISTRATIVE OFFICE CLERK FU in 3 months Abnormal uterine bleeding 03/19/2022 Assessment & Plan (02/04/2024 1:07 PM EST): Seems to be improving on Provera 10 mg x 1 week per month. FU with ADMINISTRATIVE OFFICE CLERK. Monitor hemoglobin. Anxiety 03/19/2022 Iron deficiency anemia [...] BID during menstrual bleeding and FU w/ ADMINISTRATIVE OFFICE CLERK She did not tolerate OCP Low vision, [...] Description 07/14/2024 3:15 PM EDT Office Visit [facility] [address] [place] [phone] Ginny Kee, OD Hypermetropia, bilateral (Primary Dx) 07/14/2024 Travel 06/03/2024 Travel 05/28/2024 Orders Only GENERIC EXTERNAL DATA DEPARTMENT Provider, Generic External Data 05/22/2024 Population Health Risk Score [facility] (C3) Department [address] [place] [address], [place] [address] Provider, Population Health Generic 05/20/2024 Telephone [facility] [address] [place] [phone] Bianca Ramírez MD 05/19/2024 8:40 AM EDT Office Visit [facility] [address] [place] [phone] Bianca Ramírez MD Vagina, candidiasis (Primary Dx); UTI symptoms 05/19/2024 Orders Only [facility] [address] [place] [phone] Bianca Ramírez MD 05/19/[address] [address] Dillan Napier, CNM No Show 05/18/[address] [address] Pearl Valentine MD Nurse Triage from Last 3 Months Immunizations Immunization Administration Dates Next Due DTaP 04/19/1991, 1,06/26/1989,1986,11/02/1985 [...] Health Maintenance Due Date Last Done Comments Disability Screening 1984 Alcohol/Substance Use Screening 1996 Pneumococcal Vaccine: Pediatrics (0 to 5 Years) and At-Risk Patients (6 to 49) Years) (1 of 2 - PCV) 11/06/2003 Hepatitis B Vaccines (3 of 3 - 3-dose series) 04/16/2011 02/19/2011, 12/01/1999, 11/28/1998 COVID-19 Vaccine (3 - season) 2023 01/05/2021, 05/25/2020 Influenza Vaccine (#1) 2023 , 12/25/2017, 01/24/2016, Additional history exists Depression Screening 01/30/2024 01/29/2023, 01/30/20 23 SDOH Screening 07/23/2024 07/24/2023 Dental Oral Exam 09/24/2024 03/26/2024, , 10/26/2022, Additional history exists Dental Prophylaxis 09/24/2024 03/26/2024, 0 07/05/2023, 10/26/2022, Additional history exists Family Planning (PISQ) 12/25/2024 12/26/2023 Dental X-Ray: Bitewings 03/27/2025 03/26/19, 06/25/2023, 09/20/2022, Additional history exists Tobacco Screening 07/14/2025 07/14/2024 DTaP/Tdap/Td Vaccines (7 - Td or Tdap) 09/05/2025 09/06/2015, 11/28/1998, [...] patient's age to complete this topic Meningococcal B Vaccine Aged Out No l onger eligible based on patient's age to complete [...] caries associated with failed or defective dental jainism BITEWINGS - 4 RADIOGRAPHIC IMAGES Routine 03/26/2024 8:00 AM EST Secondary dental caries associated with failed or defective dental jainism PERIODIC ORAL EVALUATION - ESTABLISHED PATIENT Routine 03/26/2024 8:00 AM EST Secondary dental caries associated with failed or defective dental jainism HEPATITIS PANEL, GENERAL Routine 01/29/2023 10:18 AM EST Encounter for preventive health examination LIPID PANEL WITH REFLEX TO DIRECT LDL Routine 01/29/2023 10:18 AM EST Encounter for preventive health examination INTRAORAL - COMPLETE SERIES OF RADIOGRAPHIC IMAGES Routine 09/20/2022 8:00 AM EDT HIV ANTIBODY/ANTIGEN ([place] DPH) Routine 04/26/2022 3:58 PM EST from Last 3 Months or Most Recently Relevant to Health Maintenance Results * HPV DNA, Low/High Risk (05/28/2024 1:00 PM EDT) HPV High Risk Negative Negative [facility] HPV Genotype 16 Negative Negative [facility] HPV Genotype 18 Negative Negative [facility] Comment:HPV testing performe d at [facility] (CLIA#[id number]), [address] [place] [address].Testing for HPV was performed using the [employer] [...] Provider LAB BLOOD ORDERAB LES Final Result [facility] [address] [place] [phone] * Pap Smear (05/28/2024 7:53 AM EDT) 05/28/2024 7:53 AM EDT 05/28/2024 12:40 PM EDT [facility] - 06/04/2024 1:49 PM EDT ----- ------- Name: Jesica Dawson ? Age/Sex: 38/F ? : 1985 Unit#: [id number] ?? Attend Dr: eDng De Luna MD ?Re05/28/24 ?Status: DEP REF ? Location: HO.LNP ?Disch: ? ----- ------- SPEC : [id number] ? RECD: 05/28/24-124 ? STATUS: ??SOUT ? REQ NUM: [id number] ? NIEVES: 05/28/24-0753 ? SUBM DR: Deng De Luna MD [...] To: ?? DILLAN NAPIER CNM ?? [address] ?? [place] [address] ? Deng De Luna MD ?? [facility] ?? [address] [facility] ?? [place] [address] ?? [phone] ----- ------- Signed (signature on file) KAROLINA Dacosta (ASCP) 06/04/24 8029 ? ----- ------- ? END OF REPORT ? us Generic External Data Provider LAB CYTOLOGY ORDE RABLES Final Result Performing Organization Address [facility]/ZIP Co de Phone Number [facility] [address] [place] [address] [phone] * (ABNORMAL) Bacterial Vaginosis (05/19/2024 8:58 AM EDT) TRICHOMONAS VAGINALIS DETECTION BY PCR NOT DETECTED Not Detect [facility] BACTERIAL VAGINOSIS DETECTION BY PCR POSITIVE(A) Negative [facility] Comment:The BV organism targ ets of [...] GROUP DETECTION BY PCR DETECTED(A) Not Detect [facility] Annette glab krusei PCR NOT DETECTED Not Detect [facility] Swab Vaginal structure / Unknown 05/19/2024 8:58 AM EDT 05/19/2024 5:25 PM EDT Bianca Ramírez MD LAB MICROBIOLOGY - GENERAL ORDERABLES Final Result Performing Organization Address [facility]/ZIP Co de Phone Number [facility] [address] [place] [address] [phone] * (ABNORMAL) Urinalysis, Complete, with Reflex to Culture (05/19/2024 8:58 AM EDT) Color Urine Yellow [facility] Appearance Urine Clear [facility] PH 8.5 5.0 - 9.0 [facility] Glucose Urine UA Negative Negative mg/dL [facility] Urine Blood Trace(A) Negative [facility] Specific [place] - Urine 1.020 1.005 - 1.025 [facility] Urine Protein Trace Neg-Trace mg/dL [facility] Urine Ketones Negative Negative mg/dL [facility] Nitrite Urine Negative Negative [facility] Leukocyte Esterase Urine Small (1+)(A) Negative [facility] RBC Urine 0-2 0 - 2 /HPF [facility] Urine WBC 0-5 0 - 5 /HPF [facility] Urine Squamous Epithelial Cell 0-2 0 - 2 /HPF [facility] Urine Bacteria None Seen None Seen [facility] Hyaline Casts, Urine 0-2 0 - 2 /LPF [facility] Urine 05/19/2024 8:58 AM EDT 05/19/2024 5:25 PM EDT Narrative [facility] - 05/19/2024 5:43 PM EDT Urine, Clean Catch us Bianca Ramírez MD LAB URINE ORDERABLES Final Result [facility] [address] [place] [phone] * Chlamydia/N. Gonorrhoeae RNA, TMA, Urogenitial (05/19/2024 8:58 AM EDT) CT PCR NOT DETECTED Not Detect. [facility] Comment:A not detected test result does [...] psychologicalconsequences. NG PCR NOT DETECTED Not Detect. [facility] Comment:A not detected test result does [...] AM EDT 05/19/2024 5:25 PM EDT Narrative [facility] - 05/20/2024 5:20 AM EDT Vaginal Bianca Ramírez MD LAB MICROBIOLOGY - GENERAL ORDERABLES Final Result [facility] [address] [place] [phone] * (ABNORMAL) POCT urinalysis dipstick manually [...] procedure / Unknown 05/19/2024 05/19/2024 Comment:UACC Narrative [facility] - 05/21/2024 10:31 AM EDT Urine Culture No growth. Specimen Source: Urine clean catch Bianca Ramírez MD LAB MICROBIOLOGY - GENERAL ORDERABLES Final Result [facility] [address] [place] [address] [phone] * Lipid Panel with Reflex to Direct LDL (01/29/2023 10:18 AM EST) Triglycerides 67 <150 mg/dL [facility] Comment:Desirable Triglyceri de: less than 150 mg/dLBorderline High Triglyceride 150-199 mg/dLHigh Triglyceride: 200-499 mg/dLVery High Triglyceride: greater than or equal to 5OO mg/dL Cholesterol 132 <200 mg/dL [facility] Comment:Desirable Cholestero l: less than 200 mg/dLBorderline High Cholesterol: 200-239 mg/dLHigh Cholesterol: greater than 239 mg/dL LDL Cholesterol Calculated 57 <100 mg/dL [facility] Comment:Desirable LDL: less than 100 mg/dLNear Optimal/Above Optimal LDL: 110- 129 mg/dLBorderline High LDL: 130-159 mg/dLHigh LDL: 160-189 mg/dLVery High LDL: greater than or equal to 190 mg/dL HDL Cholesterol 62 >40 mg/dL [facility] Comment:Desirable HDL: great er than 40 mg/dL Note: This HDL assay may give artificially low results in patients with liver disease. Blood 01/29/2023 10:1 8 AM EST 01/29/2023 11:18 AM EST Pearl Valentine MD LAB BLOOD ORDERABLES Fin al Result Performing Organization Address [facility] de Phone Number [facility] [address] [place] [phone] * Hepatitis Panel, General (01/29/2023 10:18 AM EST) Hepatitis A IgM Nonreactive Nonreactive [facility] Comment:IgM antibodies to WYNN V not detected; does not exclude earlyacute or recovered HAV infection. ~Hepatitis B Surface Antibody NONREACTIVE Nonreactive [facility] Comment:Nonreactive: < 8.00 mIU/mL Hepatitis B Core Antibody Nonreactive Nonreactive [facility] Hepatitis C Antibody Nonreactive Nonreactive [facility] Comment:Antibodies to HCV no t detected; does not exclude early acuteHCV infection. Hepatitis B Surface Ag Negative Negative [facility] Blood 01/29/2023 10:1 8 AM EST 01/29/2023 11:18 AM EST Pearl Valentine MD LAB BLOOD ORDERABLES Fin al Result Performing Organization Address [facility] de Phone Number [facility] [address] [place] [phone] * HIV Ab/Ag ([place] ELIJAH) (04/26/2022 3:58 PM EST) HIV AB/AG Nonreactive Nonreactive [facility] Comment:HIV-1 p24 Ag and/or HIV-1/HIV-2 Ab not detected.A test result that is nonreactive does not exclude thepossibility of exposure to or infection with HIV-1 and/orHIV-2. Nonreactive results in this assay for individualswith prior exposure to HIV-1 and/or HIV-2 may be due toantigen and antibody levels that are below the limit ofdetection of this assay.The [employer] HIV Ag/Ab Combo assay result andsupplemental assay results should be interpreted inconjunction with the patient's clinical presentation,history and other laboratory results. If the results areinconsistent with clinical evidence, additional testing issuggested to confirm the result. 04/26/2022 3:58 PM EST 04/26/2022 3:58 PM EST [facility] External Provider LAB BLO OD ORDERABLES Final Result [facility] [address] [place] [address] [phone] from Last 3 Months or Most Recently Relevant to Health Maintenance Insurance [facility] C3 DENT[facility] MEDICAID STAND ADULT Care Teams Automatic Vulcanizing Operator Relationship Specialty Start Date End Date Pearl Valentine MD [address] [place] [address] [place] [phone] PCP - General Family Medicine 03/27/18
--- OUTSIDE RECORDS SUMMARY | 2024-07-30 07:31 | XMS_ITS | Encounter Summary ---
Author Organization [employer] Address [address] [facility] 7t [place] [address] Care Team Providers Care Donor Services Team Leader Name Role Phone Pearl Valentine MD Primary Care Provider + Encounter Details Date Type Department Care Team (Late st Contact Info) Description 02/12/2022 Orders Only [facility] [address] [place], [place] [phone] Sofya Fierro, PRICEM [address] [place], [place] [phone] Cyst of right ovary Social History Tobacco [...] cyst documented in this encounter Care Teams Donor Services Team Leader Relationship Specialty Start Date End Date Pearl Valentine MD [address] [place], [place] [phone] PCP - General Family Medicine 03/27/18 documented as of this encounter
--- OUTSIDE RECORDS SUMMARY | 2024-07-30 07:31 | XMS_ITS | Encounter Summary ---
Author Organization [employer] [facility] Address [address] [place] [address] [address] [place] [address] Care Team Providers Care Equipment Maintenance Engineer Name Role Phone Pearl Valentine MD Primary Care Provider + Reason for Referral * Imaging (Routine) - Closed Specialty Diagnoses / Procedures Referred By Contac t Referred To Contact Diagnoses Ovarian cyst, right Procedures Us Pelvis complete Sofya Fierro CNM [address] [place] [address] Phone: tel: fax: [address] [phone] Phone: tel: fax: Referral ID Status Reason Start Date Expiration Date Visits Re quested Visits Authorized [id number] Closed 03/22/2022 09/18/2022 1 1 * Imaging (Routine) - Closed Specialty Diagnoses / Procedures Referred By Contac t Referred To Contact Diagnoses Ovarian cyst, right Procedures US Pelvis Transvaginal Sofya Fierro CNM [address] [place] [address] Phone: tel: fax: [address] [phone] Phone: tel: fax: Referral ID Status Reason Start Date Expiration Date Visits Re quested Visits Authorized [id number] Closed 03/22/2022 09/18/2022 1 1 Encounter Details Date Type Department Care Team (Late st Contact Info) Description 03/22/2022 Orders Only [facility] [address] [place] [address] Sofya Fierro CNM [address] [place] [address] Ovarian cyst, right (Primary Dx) Social History [...] cyst documented in this encounter Care Teams Equipment Maintenance Engineer Relationship Specialty Start Date End Date Pearl Valentine MD [address] [place] [address] PCP - General Family Medicine 03/27/18 documented as of this encounter
--- NOTE | 2024-07-30 07:41 | MHC.OFFVIS ---
Vital Signs 07/30/24 07:43 Height 5 ft 6 in Weight 163 lb BMI 26.3 Intake Visit Reasons: IUD removal Child Welfare Caseworker Required: No Information Interpreted: non-clinical & clinical Transition Manager: Transition Manager Present (Josette Cee RAKEL) Accompanied by: Self / Same As Patient Allergies No Known Allergies [No Known Allergies*] Allergy (Verified 07/30/24 07:45) Is last menstrual period known: No (mirena) HPI Comments Details: Presenting requesting IUD removal, complaining of anxiety with pelvic cramping, no fever or chills no nausea or vomiting PFSH Medical History Migraine HPV in female Surgical History Hx of tubal ligation Family History Maternal Grandmother Diabetes Breast cancer Mother HTN (hypertension) Social History Household Members: Children Housing: Apartment Alcohol intake: current Alcohol intake frequency: holidays/special occasions only Patient Tobacco Use Status: Former Tobacco user Current occupational status: employed 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 Sexual orientation: Straight/Heterosexual Gender identity: Female Female Reproductive History Menstrual Age of Menarche: 11 Review of Systems Const All systems reviewed & are unremarkable except as noted in HPI and below Physical Exam Vital Signs: BMI result Body Mass Index 26.3 General: Yes no CVA tenderness External Female Exam: normal external appearance and normal appearance of the urethra Speculum Exam - Vagina: normal appearance of the vagina, normal palpation, no lesions and no masses Speculum Exam - Cervix: normal appearance of the cervix, normal palpation, no lesions, no masses, nontender and Other cervical findings present (IUD thread in place) Bimanual exam- vagina & uterus: normal bimanual exam, normal palpation, uterine size normal, normal palpation, uterine shape normal, No Cervical tenderness present and non-tender Bimanual Exam- Adnexa, other: normal adnexae Back/Spine/Pelvis Back: no CVA tenderness Office Procedures IUD Insert/Removal Details Details: Counseling/Consent: After discussing with the patient the risks of the procedure including bleeding, infection, scar tissue formation, , possible injury to blood vessels or nerves, chronic arm pain, blood transfusion, and irregular unpredictable bleeding Alternative options were discussed with the patient including but not limited: Do nothing. The patient signed the consent and agreed with the plan; all questions answered. Urine test was done in the office and was negative Preop dx: Requesting IUD removal Op: IUD removal Post op dx: same EBL= 10 cc Procedure: The patient was put in the dorsal lithotomy position a speculum was inserted in the vagina the IUD thread identified. Using a Alysia clamp the thread was grasped and the IUD pulled out with no complications. The patient tolerated the procedure well and was advised to use a different method for contraception. Discharge instructions: Instructions were given to the pt to call if temp>100.4, abdominal pain heavy vaginal bleeding, n/v occur. The patient verbalized understanding and all questions answered. This note was generated with a voice recognition program. Some errors may have been overlooked during the review of this note. Sometimes these errors may affect the content or meaning of a given sentence. 36959-IFR Removal Procedure code (CPT) selection complete Assessment & Plan Assessment & Plan (1) Encounter for IUD removal: Code(s): Z30.432 - Encounter for removal of intrauterine contraceptive device Category: Medical Plan: UPT done in the office was negative The patient is requesting IUD removed, see procedure note Coding Level of Care Code Procedure Only Diagnoses Encounter for IUD removal Z30.432 CPT Codes Details - CPT: 69727-OGX Removal ([id number])
[2024-07-30 07:43] VITALS: BMI 26.3
== END 2024-07-30 08:22 | disposition home or self-care (01) ==
LOC: HO.HWS 07:30
PROVIDERS: PCP Advanced Practice Midwife; Visit Provider Obstetrics & Gynecology
DX: Z30.432 Encounter for removal of intrauterine contraceptive device (principal)
CPT/HCPCS: 58301

== ENCOUNTER → 2024-07-30 07:30 | Outpatient (BNVA) | payer MEDICAID, SELFPAY | PROVIDERS: PCP Advanced Practice Midwife; Visit Provider Obstetrics & Gynecology | DX: Z30.432 Encounter for removal of intrauterine contraceptive device (principal) | CPT/HCPCS: 58301 ==

== ENCOUNTER 2024-08-04 13:19 | Outpatient (REF) | payer MEDICAID, SELFPAY ==
--- NOTE | ~2024-08-04 | US_ITS ---
EXAMINATION: US PELVIS TRANSABDOMINAL AND TRANSVAGINAL HISTORY: N93.9 - Abnormal uterine and vaginal bleeding, unspecified COMPARISON: Comparison is made with the prior examination dated 04/06/2022. TECHNIQUE: Transabdominal and endovaginal real-time 2D nichole-scale ultrasound was performed. FINDINGS: Uterus: The uterus is normal in size, measuring 7.5 x 4.7 x 6.3 cm. Myometrium has a normal echotexture. There is an anterior fibroid on the left measuring 2.1 x 2.1 x 2.4 cm. Endometrium: The endometrial stripe measures 3 mm in thickness. Right ovary: The right ovary measures 2.3 x 2.7 x 1.7 cm. The right ovary is normal in size and echotexture. Left ovary: The left ovary measures 2.0 x 2.3 x 2.2 cm. The left ovary is normal in size and echotexture. Pelvic fluid: none. US/US pelvic and transvaginal IMPRESSION: 2.1 x 2.1 x 2.4 cm left anterior uterine fibroid. Otherwise unremarkable pelvic ultrasound. Electronically signed by: Jona Jimenez MD 08/04/2024 02:33 PM EDT
--- OUTSIDE RECORDS SUMMARY | 2024-08-04 13:23 | XMS_ITS | Encounter Summary ---
Author Organization [employer] Address [address] [facility] [address] [place] [address] Care Team Providers Care Mortgage Professional Name Role Phone Pearl Valentine MD Primary [...] on filedocumented in this encounter Care Teams Mortgage Professional Relationship Specialty Start Date End Date Pearl Valentine MD [address] [place] [address] [phone] PCP - General Family Medicine 03/27/18 documented as of this encounter
== END 2024-08-04 13:20 | disposition home or self-care (01) ==
LOC: HO.US 13:19
PROVIDERS: Visit Provider Obstetrics & Gynecology
DX: N93.9 Abnormal uterine and vaginal bleeding, unspecified (principal)
CPT/HCPCS: 76830; 76856

== ENCOUNTER → 2024-08-04 13:20 | Outpatient (BNV) | payer MEDICAID, SELFPAY | PROVIDERS: Visit Provider Radiology Diagnostic Radiology | DX: D25.9 Leiomyoma of uterus, unspecified (principal) | CPT/HCPCS: 76830; 76856 ==

== ENCOUNTER 2024-09-07 11:42 | Outpatient (AMB) | payer MEDICAID, SELFPAY ==
--- NOTE | 2024-09-07 11:42 | MHC.OFFVIS ---
Intake Visit Reasons: ultrasound results Allergies No Known Allergies (No Known Allergies*) Allergy (Verified 07/30/24 07:45) HPI Comments Details: The patient is scheduled a telehealth visit for follow-up ultrasound which was done in 08/02 and showed the following: Uterus: The uterus is normal in size, measuring 7.5 x 4.7 x 6.3 cm. Myometrium has a normal echotexture. There is an anterior fibroid on the left measuring 2.1 x 2.1 x 2.4 cm. Endometrium: The endometrial stripe measures 3 mm in thickness. Right ovary: The right ovary measures 2.3 x 2.7 x 1.7 cm. The right ovary is normal in size and echotexture. Left ovary: The left ovary measures 2.0 x 2.3 x 2.2 cm. The left ovary is normal in size and echotexture. Pelvic fluid: none. US/US pelvic and transvaginal IMPRESSION: 2.1 x 2.1 x 2.4 cm left anterior uterine fibroid. Otherwise unremarkable pelvic ultrasound. The patient was seen early July with pelvic cramping, IUD removal was done a week afterwards and since then pelvic cramping has resolved completely, no other problems or concerns [facility] Medical History Migraine HPV in female Surgical History Hx of tubal ligation Family History Maternal Grandmother Diabetes Breast cancer Mother HTN (hypertension) Social History Household Members: Children Housing: Apartment Alcohol intake: current Alcohol intake frequency: holidays/special occasions only Patient Tobacco Use Status: Former Tobacco user Current occupational status: employed 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 Sexual orientation: Straight/Heterosexual Gender identity: Female Female Reproductive History Menstrual Age of Menarche: 11 Review of Systems Const All systems reviewed & are unremarkable except as noted in HPI and below Reports as per HPI and Reports no additional complaints GI Reports no additional complaints Reports no additional complaints Telehealth Telehealth Telehealth Platform: Telephone Location of provider rendering services: practice address Location of patient: address on file Patient Identification confirmed using: Name, : Yes Telehealth method: video Patient verbally consented to treatment: Yes Patient verbally consented to billing insurance company: Yes Patient informed of any privacy concerns related to visit: Yes Minutes spent on Phone/Video with Pt.: 2 Assessment & Plan Assessment & Plan (1) Uterine myoma: Code(s): D25.9 - Leiomyoma of uterus, unspecified Category: Medical Plan: Discussed with the patient the findings on pelvic ultrasound & the risk of myosarcoma; in addition reviewed with the patient that malignancy and pre malignancy cannot be ruled out without hysterectomy for pathological evaluation ; furthermore, explained to the patient the limitation of pelvic ultrasound and endometrial biopsy in the setting. Discussed with the patient the options of treatment including expectant management versus hysterectomy; the pros and cons, risks benefits of each approach were discussed with the patient including the fact that in cases of myosarcoma, surgical treatment can lead to early diagnosis and positively affects the prognosis; after further discussion, the patient decided to proceed with expectant management. Will repeat pelvic ultrasound periodically. Instructions given to patient to call in case any of the following occurs: pressure symptoms, abnormal uterine bleeding, pelvic pain; and to schedule a six-months pelvic ultrasound (order placed) and a follow-up appointment . All questions answered, the patient verbalized understanding and agreed with the plan . I spent a total of 20 minutes reviewing the chart, talking to the patient via video and documenting in the medical record. Orders: Orders US pelvic and transvaginal 6 Months D25.9 - Leiomyoma of uterus, unspecified Coding Level of Care Code Tele Est Pt Level 3 (15995) Diagnoses Uterine myoma D25.9
--- OUTSIDE RECORDS SUMMARY | 2024-09-07 12:32 | XMS_ITS | Encounter Summary ---
Author Organization [employer] Address [address] [place] [address] Care Team Providers Care Recyclable Products Sorter Name Role Phone Pearl Valentine MD Primary [...] on filedocumented in this encounter Care Teams Recyclable Products Sorter Relationship Specialty Start Date End Date Pearl Valentine MD [address] [place] [address] [id number] PCP - General Family Medicine 03/27/18 documented as of this encounter
== END 2024-09-07 11:58 | disposition home or self-care (01) ==
LOC: HO.HWS 11:42
PROVIDERS: Visit Provider Obstetrics & Gynecology
DX: D25.9 Leiomyoma of uterus, unspecified (principal)
CPT/HCPCS: 99213